=== PATIENT | female | born 1990 | race Two or more races ===

== ENCOUNTER 2016-06-30 06:43 | Emergency (ER) | payer SELFPAY ==
--- NOTE | 2016-06-30 10:46 | ER Document Report ---
HPI - HPI Patient complains to provider of: leg swelling Onset: Other - 10 years for the right, 1 week for the left Quality of pain: Throbbing Pain Level: 5 Context: 26 yo female with new swelling to left lower leg and calf pain for 1 week. Hx. chronic swelling to tirht lower leg for 10 years. No dx of what causes the swelling. Works on feet. No chest pain or SOB. No OC's. Associated Symptoms: None Exacerbated by: Standing Relieved by: Denies Similar symptoms previously: Yes Recently seen / treated by doctor: No - ROS ROS below otherwise negative: Yes Systems Reviewed and Negative: Yes All other systems reviewed and negative - REPRODUCTIVE LMP: 06/12/16 Reproductive: DENIES: : - DERM Skin Color: Normal, [place] Past Medical History - General Information source: Patient - Social History Smoking Status: Never Smoker Chew tobacco use (# tins/day): No Frequency of alcohol use: None Drug Abuse: None Lives with: Spouse/Significant other Family History: CAD - father Pulmonary Medical History: Reports: Hx Asthma Renal/ Medical History: Denies: Hx Peritoneal Dialysis Psychiatric Medical History: Reports: Hx Attention Deficit Hyperactivity Disorder, Hx Depression Past Surgical History: Reports: Hx Oral Surgery - Gum surgery - Immunizations Immunizations up to date: Yes Hx Diphtheria, Pertussis, Tetanus Vaccination: Yes Vertical Provider Document - CONSTITUTIONAL Agree With Documented VS: Yes Exam Limitations: No Limitations General Appearance: No Apparent Distress - INFECTION CONTROL TRAVEL OUTSIDE OF THE [place] IN LAST 30 DAYS: No - HEENT HEENT: Normal ENT Exam - NECK Neck: Supple - RESPIRATORY Respiratory: Breath Sounds Normal, No Respiratory Distress O2 Sat by Pulse Oximetry: 100 - CARDIOVASCULAR Cardiovascular: Regular Rate, Regular Rhythm - GI/ABDOMEN Gastrointestinal: Abdomen Soft, Abdomen Non-Tender, No Organomegaly - MUSCULOSKELETAL/EXTREMETIES Musculoskeletal/Extremeties: MAEW, FROM, Tender - minimal posterior left calf. More pitting edema right foot, pretial than the left. - NEURO Level of Consciousness: Awake, Alert Motor/Sensory: No Motor Deficit, No Sensory Deficit - DERM Integumentary: Warm, Dry, No Rash Course - Re-evaluation Re-evalutation: 06/30/16 11:54 Dr. Jovanny Leon called in for the venous Doppler ultrasounds are negative - Vital Signs Vital signs: Temp Pulse Resp BP Pulse Ox 97.7 F 81 16 140/92 H 100 06/30/16 06:53 06/30/16 06:53 06/30/16 06:53 06/30/16 06:59 06/30/16 06:53 - Laboratory Result Diagrams: 06/30/16 11:56 06/30/16 11:56 Discharge - Discharge Clinical Impression: elevated blood pressure reading, chronic peripheral edema Condition: Good Disposition: HOME, SELF-CARE Instructions: Edema, Peripheral ([facility]), Family Physicians / Practices Additional Instructions: elwevate legs above your heart see family practice doctor for further evaluation and lood pressure recheck wear knee socks compression type Forms: Return to Work
[2016-06-30 10:50] LABS: APPEARANCE,URINE CLOUDY; BILIRUBIN,URINE NEGATIVE (NEGATIVE); GLUCOSE, URINE NEGATIVE (NEGATIVE); KETONES,URINE NEGATIVE (NEGATIVE); LEUKOCYTE ESTERASE,URINE MODERATE (NEGATIVE); NITRITE,URINE NEGATIVE (NEGATIVE); PROTEIN,URINE NEGATIVE (NEGATIVE); UROBILINOGEN,URINE NEGATIVE mg/dL (<2.0)
[2016-06-30 12:26] LABS: ABSOLUTE EOSINOPHILS # (AUTO) 0.3 10^3/uL (0.0-0.6); ABSOLUTE LYMPHOCYTES (AUTO) 1.7 10^3/uL (0.5-4.7); ABSOLUTE MONOCYTES (AUTO) 0.5 10^3/uL (0.1-1.4); ABSOLUTE NEUT (AUTO) 2.8 10^3/uL (1.7-8.2); BASOPHILS % (AUTO) 0.6 % (0-2); EOSINOPHILS % (AUTO) 5.2 % (0-6); HEMATOCRIT 40.1 % (36.0-47.0); HGB HCT DIFFERENCE -1.1; LYMPHOCYTES % (AUTO) 31.6 % (13-45); MEAN CORPUSCULAR HEMOGLOBIN 29.3 pg (27.0-33.4); MEAN CORPUSCULAR HGB CONC 32.5 g/dL (32.0-36.0); MEAN CORPUSCULAR VOLUME 90 fl (80-97); MONOCYTES % (AUTO) 9.2 % (3-13); RED BLOOD COUNT 4.44 10^6/uL (3.72-5.28); RED CELL DISTRIBUTION WIDTH 14.6 % (11.5-14.0); SEGMENTED NEUTROPHILS % (AUTO) 53.4 % (42-78); WHITE BLOOD COUNT 5.2 10^3/uL (4.0-10.5)
[2016-06-30 12:45] LABS: ALANINE AMINOTRANSFERASE 12 U/L (9-52); ALKALINE PHOSPHATASE 72 U/L (38-126); ANION GAP 7 (5-19); ASPARTATE AMINO TRANSFERASE 18 U/L (14-36); BILIRUBIN,TOTAL 0.4 mg/dL (0.2-1.3); BLOOD UREA NITROGEN 9 mg/dL (7-20); CALCIUM 8.8 mg/dL (8.4-10.2); CARBON DIOXIDE 23 mmol/L (22-30); CHLORIDE 107 mmol/L (98-107); GLUCOSE 86 mg/dL (75-110); POTASSIUM 4.4 mmol/L (3.6-5.0); SODIUM 137.1 mmol/L (137-145); TOTAL PROTEIN 6.2 g/dL (6.3-8.2)
[2016-06-30 13:31] VITALS: BP 149/79
--- NOTE | 2016-07-01 13:55 | XCELERA REPORT ---
[address] [address] Lower Extremity Venous Evaluation Name: STALIN HERNÁNDEZ Age: 26 yrs Gender: Female : 1990 Patient Status: Emergency Patient Location: ER Study Date: 06/30/2016 11:16 AM Procedure: Color flow and duplex imaging bilaterally of the veins of the lower extremities as well as the Common Femoral veins. Reason For Study: bila edema, new to left with calf pain Ordering Physician: PEDRO RIOS Performed By: Paul Boothe Right Sided Venous Evaluation Normal vessel filling wall to wall, compression and augmentation as well as Colour flow down to the infrageniculate veins. Left Sided Venous Evaluation Normal vessel filling wall to wall, compression and augmentation as well as Colour flow down to the infrageniculate veins. Critical Findings Per preliminary report. Interpretation Summary No duplex evidence of DVT or obstruction in the bilateral lower extremities. : PEDRO RIOS > Jovanny Leon
== END 2016-06-30 13:31 | disposition home or self-care (01) ==
LOC: ER 06:43
DX: R03.0 Elevated blood-pressure reading, without diagnosis of hypertension (principal); R60.9 Edema, unspecified; M79.89 Other specified soft tissue disorders; M79.662 Pain in left lower leg
CPT/HCPCS: 36415; 80053; 81001; 85025; 93970; 99284

== ENCOUNTER → 2016-07-10 | Outpatient (CLI) | payer OTHER ==
[2016-07-10 10:30] LABS: CHOLESTEROL 189.83 mg/dL (0-200); Direct HDL 53 mg/dL (>40); TRIGLYCERIDES 87 mg/dL (<150)
[2016-07-10 10:41] LABS: DIRECT LDL 107 mg/dL (<100)
== END ==
LOC: CCC 08:53
DX: E66.9 Obesity, unspecified (principal); R73.9 Hyperglycemia, unspecified
CPT/HCPCS: 36415; 80061; 83036; 84443

== ENCOUNTER 2016-07-13 14:27 | Emergency (ER) | payer OTHER ==
--- NOTE | 2016-07-13 14:41 | ER Document Report ---
ED Medical Screen (RME) - General Stated Complaint: BODY PAIN Time seen by provider: 14:39 Notes: Patient complains of "inside" body pain for the last 2 weeks. Denies fever, no nausea, no vomiting, no diarrhea. Patient states she has been tested for diabetes, but has not received the results yet. Blood work was drawn and also diagnostics. Patient has history of hypertension. In checking [employer], no labs noted to be done yesterday from also diagnostics. I have greeted and performed a rapid initial assessment of this patient. A comprehensive ED assessment and evaluation of the patient, analysis of test results and completion of the medical decision making process will be conducted by additional ED providers. TRAVEL OUTSIDE OF THE [place] IN LAST 30 DAYS: No - Related Data Allergies/Adverse Reactions: No Known Allergies Allergy (Verified 07/13/16 14:38) Past Medical History Pulmonary Medical History: Reports: Hx Asthma Renal/ Medical History: Denies: Hx Peritoneal Dialysis Psychiatric Medical History: Reports: Hx Attention Deficit Hyperactivity Disorder, Hx Depression Past Surgical History: Reports: Hx Oral Surgery - Gum surgery - Immunizations Immunizations up to date: Yes Hx Diphtheria, Pertussis, Tetanus Vaccination: Yes Physical Exam - General General appearance: Appears well, Alert In distress: None
[2016-07-13 16:28] LABS: ABSOLUTE EOSINOPHILS # (AUTO) 0.3 10^3/uL (0.0-0.6); ABSOLUTE LYMPHOCYTES (AUTO) 1.8 10^3/uL (0.5-4.7); ABSOLUTE MONOCYTES (AUTO) 0.8 10^3/uL (0.1-1.4); ABSOLUTE NEUT (AUTO) 3.6 10^3/uL (1.7-8.2); BASOPHILS % (AUTO) 0.6 % (0-2); HEMOGLOBIN 13.2 g/dL (12.0-15.5); HGB HCT DIFFERENCE -1.4; LYMPHOCYTES % (AUTO) 27.6 % (13-45); MEAN CORPUSCULAR HEMOGLOBIN 29.2 pg (27.0-33.4); MEAN CORPUSCULAR HGB CONC 32.2 g/dL (32.0-36.0); MEAN CORPUSCULAR VOLUME 91 fl (80-97); MONOCYTES % (AUTO) 12.7 % (3-13); RED BLOOD COUNT 4.52 10^6/uL (3.72-5.28); RED CELL DISTRIBUTION WIDTH 13.9 % (11.5-14.0); SEGMENTED NEUTROPHILS % (AUTO) 54.1 % (42-78); WHITE BLOOD COUNT 6.6 10^3/uL (4.0-10.5)
[2016-07-13 16:44] LABS: APPEARANCE,URINE CLOUDY; BILIRUBIN,URINE NEGATIVE (NEGATIVE); GLUCOSE, URINE NEGATIVE (NEGATIVE); KETONES,URINE TRACE mg/dL (NEGATIVE); LEUKOCYTE ESTERASE,URINE TRACE (NEGATIVE); NITRITE,URINE NEGATIVE (NEGATIVE); PROTEIN,URINE 30 mg/dL (NEGATIVE); URINE SPECIFIC GRAVITY 1.034
[2016-07-13 16:45] LABS: ALANINE AMINOTRANSFERASE 25 U/L (9-52); ALBUMIN 4.1 g/dL (3.5-5.0); ALKALINE PHOSPHATASE 69 U/L (38-126); ANION GAP 11 (5-19); ASPARTATE AMINO TRANSFERASE 17 U/L (14-36); BILIRUBIN,TOTAL 0.3 mg/dL (0.2-1.3); BLOOD UREA NITROGEN 13 mg/dL (7-20); CALCIUM 9.4 mg/dL (8.4-10.2); CARBON DIOXIDE 25 mmol/L (22-30); CHLORIDE 104 mmol/L (98-107); CREATININE RESULT 0.68 mg/dL (0.52-1.25); GLUCOSE 97 mg/dL (75-110); POTASSIUM 4.2 mmol/L (3.6-5.0); SODIUM 140.1 mmol/L (137-145); TOTAL PROTEIN 7.2 g/dL (6.3-8.2)
--- NOTE | 2016-07-13 17:00 | ER Document Report ---
ED General - General Chief Complaint: Pain All Over Stated Complaint: BODY PAIN Information source: Patient Notes: 26-year-old female who presents today stating for the last 2 weeks she's had some "pain all over". She states it is in her anterior bilateral thighs and radiates up to her abdomen, chest, and bilateral extremities. She denies any fevers, headache, neck pain, nausea, vomiting, fevers, or dysuria. She denies any cough or diarrhea. Patient does have a primary care physician. Patient does state that when she was around 14 years old she was told that she had a "leaky heart". She states no intervention was required. TRAVEL OUTSIDE OF THE [place] IN LAST 30 DAYS: No - HPI Onset: Other - See above Onset/Duration: Gradual Quality of pain: Achy Severity: Mild Pain Level: 1 Associated symptoms: Other - See above Exacerbated by: Denies Relieved by: Denies Similar symptoms previously: No Recently seen / treated by doctor: Yes - Related Data Allergies/Adverse Reactions: No Known Allergies Allergy (Verified 07/13/16 14:38) Past Medical History - General Information source: Patient - Social History Smoking Status: Unknown if Ever Smoked Chew tobacco use (# tins/day): No Frequency of alcohol use: None Drug Abuse: None Family History: CAD - father Patient has suicidal ideation: No Patient has homicidal ideation: No Pulmonary Medical History: Reports: Hx Asthma Renal/ Medical History: Denies: Hx Peritoneal Dialysis Psychiatric Medical History: Reports: Hx Attention Deficit Hyperactivity Disorder, Hx Depression Past Surgical History: Reports: Hx Oral Surgery - Gum surgery - Immunizations Immunizations up to date: Yes Hx Diphtheria, Pertussis, Tetanus Vaccination: Yes Review of Systems - Review of Systems Constitutional: denies: Fever EENT: denies: Eye discharge, Nose congestion, Nose discharge Cardiovascular: denies: Chest pain, Palpitations Respiratory: denies: Cough, Short of breath Gastrointestinal: denies: Abdomen distended, Abdominal pain, Diarrhea, Vomiting Genitourinary: denies: Dysuria Musculoskeletal: denies: Back pain, Leg swelling Skin: Other - no hives. denies: Rash Neurological/Psychological: Other - no slurred speech -: Yes All other systems reviewed and negative Physical Exam - Vital signs Vitals: Temp Pulse Resp BP Pulse Ox 98.7 F 72 18 136/96 H 97 07/13/16 14:40 03/05/17 14:40 07/13/16 14:40 07/13/16 14:40 07/13/16 14:40 Notes: Reviewed vital signs and nursing note as charted by RN. CONSTITUTIONAL: Alert and oriented and responds appropriately to questions. Well -appearing; well-nourished HEAD: Normocephalic; atraumatic EYES: PERRL ENT: Normal nose; no rhinorrhea; moist mucous membranes; pharynx without lesions noted NECK: Supple without meningismus; non-tender; no cervical lymphadenopathy, no masses CARD: Regular rate and rhythm; no murmurs, no clicks, no rubs, no gallops; symmetric distal pulses RESP: Normal chest excursion without splinting or tachypnea; breath sounds clear and equal bilaterally; no wheezes, no rhonchi, no rales ABD/GI: Normal bowel sounds; non-distended; soft, non-tender, no rebound, no guarding; no palpable organomegaly or masses BACK: The back appears normal and is non-tender to palpation, there is no CVA tenderness EXT: Normal ROM in all joints; non-tender to palpation; no cyanosis, no effusions, no edema SKIN: Normal color for age and race; warm; dry; good turgor; capillary refill < 2 seconds; no acute lesions noted NEURO: CN II through XII are intact. Moves all extremities equally; Motor and sensory function intact PSYCH: The patient's mood and manner are appropriate. Grooming and personal hygiene are appropriate. Course - Re-evaluation Re-evalutation: 07/13/16 17:00 Given the history and physical examination I will check the patient's electrolytes including a normal creatinine level and calcium level given her constellation of symptoms. Patient has no joint swelling or erythema. She is afebrile with stable vital signs. If the initial workup is unremarkable, I will discharge the patient home with strict return precautions and follow-up with her primary care physician. 07/13/16 17:35 Labs as recorded. Normal hemoglobin. No obvious urinary tract infection. Normal glucose and chemistry. Chest x-ray shows normal heart, normal mediastinum, no fractures, normal lung lui, no pneumothorax. Patient will be discharged home with strict return precautions and follow-up with the primary care provider. - Vital Signs Vital signs: Temp Pulse Resp BP Pulse Ox 98.7 F 72 18 136/96 H 97 07/13/16 14:40 07/13/16 14:40 07/13/16 14:40 07/13/16 14:40 07/13/16 14:40 - Laboratory Result Diagrams: 07/13/16 16:18 07/13/16 16:18 Laboratory results interpreted by me: 07/13/16 16:18 Urine Protein 30 H Urine Ketones TRACE H Urine Urobilinogen 2.0 H Ur Leukocyte Esterase TRACE H Urine Ascorbic Acid 40 H Discharge - Discharge Clinical Impression: Whole body pain Condition: Good Disposition: HOME, SELF-CARE Additional Instructions: Come back immediately with any fevers, vomiting, weakness or numbness, or any other acute problems. Please make sure that you follow-up with your primary care physician as we have discussed.
[2016-07-13 17:54] VITALS: BP 142/77
== END 2016-07-13 17:52 | disposition home or self-care (01) ==
LOC: ER 14:27
DX: M79.652 Pain in left thigh (principal); M79.651 Pain in right thigh; R10.9 Unspecified abdominal pain; R07.9 Chest pain, unspecified; M79.601 Pain in right arm; M79.602 Pain in left arm; J45.909 Unspecified asthma, uncomplicated; Z86.79 Personal history of other diseases of the circulatory system; Z82.49 Family history of ischemic heart disease and other diseases of the circulatory system
CPT/HCPCS: 36415; 71020; 80053; 81001; 85025; 87086; 99283

== ENCOUNTER 2016-07-25 22:18 | Emergency (ER) | payer OTHER ==
[2016-07-25 22:57] VITALS: BP 146/89
--- NOTE | 2016-07-26 16:04 | EKG REPORT ---
SEVERITY:- NORMAL ECG - SINUS RHYTHM : Confirmed by: Martha Rodriguez MD 26-Jul-2016 16:03:07
== END 2016-07-26 01:30 | disposition left against medical advice (07) ==
LOC: ER 22:18
DX: Z53.21 Procedure and treatment not carried out due to patient leaving prior to being seen by health care provider (principal)
CPT/HCPCS: 93005; 93010

== ENCOUNTER 2016-11-13 12:46 | Emergency (ER) | payer SELFPAY ==
--- NOTE | 2016-11-13 13:37 | ER Document Report ---
ED Psych Disorder / Suicide - General Chief Complaint: Suicidal Ideation Stated Complaint: ANXIETY Time Seen by Provider: 11/13/16 13:35 Notes: Patient is here saying that she is depressed. She has been depressed for the last 3 years. She has been seen at the local [facility] and they put her on Lexapro about 2 months ago, but she does not feel it has helped and perhaps maybe even has made it worse. She is not attempted to harm herself but has had thoughts of killing herself. She lives with her parents and her father has PTSD and she has a difficult time getting along with him at times. Yesterday, was a particularly difficult day with her father. Patient has ADHD as well as depression. No other significant medical problems. TRAVEL OUTSIDE OF THE [place] IN LAST 30 DAYS: No - Related Data Allergies/Adverse Reactions: No Known Allergies Allergy (Verified 11/13/16 12:54) Past Medical History - Social History Smoking Status: Never Smoker Chew tobacco use (# tins/day): No Frequency of alcohol use: None Drug Abuse: None Family History: CAD - father Patient has suicidal ideation: Yes Pulmonary Medical History: Reports: Hx Asthma Psychiatric Medical History: Reports: Hx Attention Deficit Hyperactivity Disorder, Hx Depression Past Surgical History: Reports: Hx Oral Surgery - Gum surgery - Immunizations Immunizations up to date: Yes Hx Diphtheria, Pertussis, Tetanus Vaccination: Yes Review of Systems - Review of Systems Notes: REVIEW OF SYSTEMS: CONSTITUTIONAL : Denies fever. EENT: Denies eye, ear, nose or mouth or throat pain or other symptoms. CARDIOVASCULAR: Denies chest pain. RESPIRATORY: Denies cough, chest congestion, or shortness of breath. GASTROINTESTINAL: Denies abdominal pain or nausea, vomiting, or diarrhea. GENITOURINARY: Denies difficulty or painful urinating, urinary frequency, blood in urine. MUSCULOSKELETAL: Denies back or neck pain. Denies joint pain or swelling. SKIN: Denies rash or skin lesions. NEUROLOGICAL: Denies LOC or altered mental status. Denies headache. Denies sensory loss or motor deficits. ALL OTHER SYSTEMS REVIEWED AND NEGATIVE. Physical Exam - Vital signs Vitals: Temp Pulse Resp BP Pulse Ox 98.2 F 99 20 138/94 H 96 11/13/16 12:53 11/13/16 12:53 11/13/16 12:53 11/13/16 12:53 11/13/16 12:53 Interpretation: Normal - Notes Notes: PHYSICAL EXAMINATION: GENERAL: Well-appearing, in no acute distress. HEAD: Atraumatic, normocephalic. EYES: Pupils equal round and reactive to light, extraocular movements intact. ENT: oropharynx clear without exudates. Moist mucous membranes. NECK: Normal range of motion, supple. LUNGS: Breath sounds clear and equal bilaterally. HEART: Regular rate and rhythm without murmurs. ABDOMEN: Soft, nontender. No guarding or rebound. BACK: No tenderness throughout entire back. EXTREMITIES: Normal range of motion without pain. NEUROLOGICAL: Normal speech, normal gait. Normal sensory, motor, and reflex exams. Awake, alert, and oriented x3. Cranial nerves normal. PSYCH: Normal mood, normal affect. No overt depression displayed. SKIN: Warm, dry, no rashes. Course - Re-evaluation Re-evalutation: 11/13/16 20:39 All of the patient's lab workup was normal. 11/13/16 20:39 Patient was evaluated by [facility] who felt that she could be discharged home for outpatient follow-up. - Vital Signs Vital signs: Temp Pulse Resp BP Pulse Ox 98.3 F 88 18 119/77 98 11/13/16 17:07 11/13/16 17:07 11/13/16 17:07 11/13/16 17:07 11/13/16 17:07 - Laboratory Result Diagrams: 11/13/16 14:18 11/13/16 14:18 Laboratory results interpreted by me: 11/13/16 11/13/16 11/13/16 14:18 14:18 14:18 MCHC 31.5 L RDW 15.3 H Glucose 132 H Urine Protein 30 H Urine Glucose (UA) 50 H Urine Ascorbic Acid 40 H Salicylates < 1.0 L Acetaminophen < 10 L Discharge - Discharge Clinical Impression: Depression Qualifiers: Depression Type: unspecified Qualified Code(s): F32.9 - Major depressive disorder, single episode, unspecified Condition: Stable Disposition: HOME, SELF-CARE Additional Instructions: DEPRESSION: Your evaluation reveals that you have mental depression. While symptoms may be vague, they often include disturbance of sleep, fatigue, loss of appetite , and general loss of interest in life. While depression may be a side effect of drugs, or a reaction to a major change in your life, many cases have no known cause. If depression is acute, and related to a major loss in your life, you can expect it to clear completely with time. If you have been depressed a long time , are prone to repeated bouts of depression or low mood, or have been thinking of suicide, get help. Depression can be treated with anti-depressant medication and counselling. Long-term depression will often take a few weeks to clear, even with appropriate medication. Follow-up care is important. SUICIDAL IDEATION: Suicidal ideation is a common medical term for thoughts about suicide, which may be as detailed as a formulated plan, without the suicidal act itself. Although most people who undergo suicidal ideation do not commit suicide, some go on to make suicide attempts. The range of suicidal ideation varies greatly from fleeting to detailed planning, role playing, and unsuccessful attempts. While thoughts about suicide are common, most people do not carry out serious actions to commit suicide. Based upon your evaluation and discussion with you, we do not believe you are currently at risk to act upon your thoughts of suicide. You have agreed to return to the Emergency Department, at any time , if you feel inclined to act upon your suicidal thoughts. FOLLOW-UP CARE: Please follow-up with outpatient services for mental health through [facility] tomorrow at 12pm. If you experience worsening or a significant change in your symptoms, notify the physician immediately or return to the Emergency Department at any time for re-evaluation. Referrals: [facility] [Outside] - 11/14/16 12:00 pm
--- NOTE | 2016-11-13 15:59 | ER Document Report ---
ED Psych Disorder / Suicide - General Chief Complaint: Suicidal Ideation Stated Complaint: ANXIETY Time Seen by Provider: 11/13/16 13:35 TRAVEL OUTSIDE OF THE [place] IN LAST 30 DAYS: No - HPI Normal mood: Yes Associated symptoms: Normal affect, Normal mood Notes: Patient is here saying that she is depressed. She has been depressed for the last 3 years. She has been seen at the local [facility] and they put her on Lexapro about 2 months ago, but she does not feel it has helped and perhaps maybe even has made it worse. She is not attempted to harm herself but has had thoughts of killing herself. She lives with her parents and her father has PTSD and she has a difficult time getting along with him at times. Yesterday, was a particularly difficult day with her father. Patient disclosed [facility] and was put on Lexapro 20 mg daily about 2 months ago and feels her depression has gotten worse. She states that in the past she has had episodes of suicidal ideation however this is different. She states that she is now having dreams of committing suicide. She states that last night she had one and "I was scary." She continued to state that her first instinct was coming to the emergency department after the dream. Patient states she does have a history of cutting; last time she cut was at 18 years of age. She continued to state that she does have a difficult time processing things because she cannot focus. Patient states she had a diagnosis of depression and ADHD. She continues states that she does live at home with her father who is diagnosed with PTSD. She states that she has a hard time sometimes communicating with him. Patient any current or past plan for suicide or harm to self Patient's friend was bedside disclosed that she will be with patient to assist continuing with outpatient services. She continues state that she is a strong support system in addition to the patient's mother if the patient wants to talk. Patient is alert and orientated to person, place, time and circumstance. Mood is euthymic with congruent affect; patient is observed laughing smiling and openly engaging with clinician. Patient endorses passive suicidal ideation no plans mean or intent. Patient denies homicidal ideation. Patient denies auditory visual hallucinations; patient is not demonstrating any behavior congruent with responding to internal stimuli. No delusions are noted. Thought processes organized and linear. Conversational speech was in rate tone and prosody. Eye contact was well-maintained. Intellectual abilities appear to be in the low average range. Attention and concentration were good. Insight , judgment, impulse control are good. 311 (F32.9) unspecified depressive disorder per history provided by patient 314.01 (F90.9) unspecified attention deficit hyperactivity disorder per history provided by patient Impression\\plan: Patient is considered psychiatrically clear for discharge. Patient does not meet IVC criteria per [place] GS 122C. Patient disclosed passive suicidal ideation that has progressively gotten worse since starting Lexapro about 2 months ago. Patient does not have established outpatient provider for mental health. Patient demonstrated good insight, judgment and impulse control on coming to the emergency department for assistance when feelings of depression intensifying. Patient is recommended for outpatient services through [facility]. Dr. Morales was consulted and the care and management of this patient; attending physician is in agreement with recommendations and disposition. - Related Data Allergies/Adverse Reactions: No Known Allergies Allergy (Verified 11/13/16 12:54) Past Medical History - Social History Smoking Status: Never Smoker Chew tobacco use (# tins/day): No Frequency of alcohol use: None Drug Abuse: None Family History: CAD - father Patient has suicidal ideation: Yes Pulmonary Medical History: Reports: Hx Asthma Renal/ Medical History: Denies: Hx Peritoneal Dialysis Psychiatric Medical History: Reports: Hx Attention Deficit Hyperactivity Disorder, Hx Depression Past Surgical History: Reports: Hx Oral Surgery - Gum surgery - Immunizations Immunizations up to date: Yes Hx Diphtheria, Pertussis, Tetanus Vaccination: Yes Physical Exam - Vital signs Vitals: Temp Pulse Resp BP Pulse Ox 98.2 F 99 20 138/94 H 96 11/13/16 12:53 11/13/16 12:53 11/13/16 12:53 11/13/16 12:53 11/13/16 12:53 Course - Vital Signs Vital signs: Temp Pulse Resp BP Pulse Ox 98.2 F 99 20 138/94 H 96 11/13/16 12:53 11/13/16 12:53 11/13/16 12:53 11/13/16 12:53 11/13/16 12:53 Discharge - Discharge Clinical Impression: Depression Qualifiers: Depression Type: unspecified Qualified Code(s): F32.9 - Major depressive disorder, single episode, unspecified Condition: Stable Disposition: HOME, SELF-CARE Additional Instructions: DEPRESSION: Your evaluation reveals that you have mental depression. While symptoms may be vague, they often include disturbance of sleep, fatigue, loss of appetite , and general loss of interest in life. While depression may be a side effect of drugs, or a reaction to a major change in your life, many cases have no known cause. If depression is acute, and related to a major loss in your life, you can expect it to clear completely with time. If you have been depressed a long time , are prone to repeated bouts of depression or low mood, or have been thinking of suicide, get help. Depression can be treated with anti-depressant medication and counselling. Long-term depression will often take a few weeks to clear, even with appropriate medication. Follow-up care is important. SUICIDAL IDEATION: Suicidal ideation is a common medical term for thoughts about suicide, which may be as detailed as a formulated plan, without the suicidal act itself. Although most people who undergo suicidal ideation do not commit suicide, some go on to make suicide attempts. The range of suicidal ideation varies greatly from fleeting to detailed planning, role playing, and unsuccessful attempts. While thoughts about suicide are common, most people do not carry out serious actions to commit suicide. Based upon your evaluation and discussion with you, we do not believe you are currently at risk to act upon your thoughts of suicide. You have agreed to return to the Emergency Department, at any time , if you feel inclined to act upon your suicidal thoughts. FOLLOW-UP CARE: Please follow-up with outpatient services for mental health through [facility] tomorrow at 12pm. If you experience worsening or a significant change in your symptoms, notify the physician immediately or return to the Emergency Department at any time for re-evaluation. Referrals: [facility] [Outside] - 11/14/16 12:00 pm
[2016-11-13 16:04] LABS: ABSOLUTE EOSINOPHILS # (AUTO) 0.3 10^3/uL (0.0-0.6); ABSOLUTE LYMPHOCYTES (AUTO) 1.7 10^3/uL (0.5-4.7); ABSOLUTE MONOCYTES (AUTO) 0.9 10^3/uL (0.1-1.4); ABSOLUTE NEUT (AUTO) 4.7 10^3/uL (1.7-8.2); BASOPHILS % (AUTO) 0.2 % (0-2); EOSINOPHILS % (AUTO) 3.3 % (0-6); HEMATOCRIT 41.2 % (36.0-47.0); HGB HCT DIFFERENCE -2.2; LYMPHOCYTES % (AUTO) 22.7 % (13-45); MEAN CORPUSCULAR HEMOGLOBIN 28.6 pg (27.0-33.4); MEAN CORPUSCULAR HGB CONC 31.5 g/dL (32.0-36.0); MEAN CORPUSCULAR VOLUME 91 fl (80-97); MONOCYTES % (AUTO) 11.4 % (3-13); RED BLOOD COUNT 4.53 10^6/uL (3.72-5.28); RED CELL DISTRIBUTION WIDTH 15.3 % (11.5-14.0); SEGMENTED NEUTROPHILS % (AUTO) 62.4 % (42-78); WHITE BLOOD COUNT 7.6 10^3/uL (4.0-10.5)
[2016-11-13 16:18] LABS: ALANINE AMINOTRANSFERASE 22 U/L (9-52); ALBUMIN 4.2 g/dL (3.5-5.0); ALKALINE PHOSPHATASE 79 U/L (38-126); ANION GAP 13 (5-19); ASPARTATE AMINO TRANSFERASE 17 U/L (14-36); BILIRUBIN,DIRECT 0.3 mg/dL (0.0-0.4); BILIRUBIN,TOTAL 0.4 mg/dL (0.2-1.3); BLOOD UREA NITROGEN 12 mg/dL (7-20); CALCIUM 9.4 mg/dL (8.4-10.2); CARBON DIOXIDE 23 mmol/L (22-30); CHLORIDE 105 mmol/L (98-107); CREATININE RESULT 0.68 mg/dL (0.52-1.25); GLUCOSE 132 mg/dL (75-110); POTASSIUM 4.3 mmol/L (3.6-5.0); SODIUM 141.3 mmol/L (137-145); TOTAL PROTEIN 7.9 g/dL (6.3-8.2)
[2016-11-13 16:20] LABS: ALCOHOL < 10 mg/dL (NONE DETECTED)
[2016-11-13 16:28] LABS: APPEARANCE,URINE CLEAR; BILIRUBIN,URINE NEGATIVE (NEGATIVE); GLUCOSE, URINE 50 mg/dL (NEGATIVE); KETONES,URINE NEGATIVE (NEGATIVE)
[2016-11-13 16:29] LABS: LEUKOCYTE ESTERASE,URINE NEGATIVE (NEGATIVE); NITRITE,URINE NEGATIVE (NEGATIVE); PROTEIN,URINE 30 mg/dL (NEGATIVE); URINE SPECIFIC GRAVITY 1.026; UROBILINOGEN,URINE NEGATIVE mg/dL (<2.0)
[2016-11-13 16:37] LABS: URINE BARBITURATES SCREEN NEGATIVE; URINE METHADONE SCREEN NEGATIVE; URINE OPIATES LOW NEGATIVE; URINE PHENCYCLIDINE SCREEN NEGATIVE
[2016-11-13 17:08] VITALS: BP 119/77
--- NOTE | 2016-11-13 18:02 | EKG REPORT ---
SEVERITY:- BORDERLINE ECG - SINUS RHYTHM NONSPECIFIC ST-T CHANGES- INFERIOR LEADS : Confirmed by: Richmond Grove MD 13-Nov-2016 18:02:39
== END 2016-11-13 17:24 | disposition home or self-care (01) ==
LOC: ER 12:46
DX: F32.9 Major depressive disorder, single episode, unspecified (principal); F41.9 Anxiety disorder, unspecified; Z79.899 Other long term (current) drug therapy
CPT/HCPCS: 36415; 80053; 80307; 81001; 85025; 93005; 93010; 99285

== ENCOUNTER 2016-12-17 08:22 | Emergency (ER) | payer SELFPAY ==
[2016-12-17 08:32] VITALS: BP 133/80
--- NOTE | 2016-12-17 08:59 | ER Document Report ---
ED General - General Mode of Arrival: Ambulatory Information source: Patient TRAVEL OUTSIDE OF THE [place] IN LAST 30 DAYS: No - HPI Associated symptoms: Other - see above - General Chief Complaint: Numbness Stated Complaint: NUMBNESS/TINGLING IN LIMBS Time Seen by Provider: 12/17/16 08:44 Notes: Patient is a 26 year old female who presents to the ED with complaints of bilateral hand tingling and numbness with onset Thursday (12/15/16). Patient states she draws frequently and she also works on a [employer] and when doing so she has shooting pain in her 3,4 and 5th digits. Patient states the sensation and pain is sometimes worse at night and is worse in her right hand (patient is right handed). Patient also adds that she has swelling in her bilateral feet since the age of 14. Patient states she also has some bruising on the top of her feet. Patient states to the swelling tends to be worse after eating and states she tends to eat a high salt diet. Patient has been worked up for this swelling before and was told it was non pitting. Patient denies any constipation. Patient does not currently have a PCP. (TAWANDA HOLLOWAY) - Related Data Allergies/Adverse Reactions: No Known Allergies Allergy (Verified 12/17/16 08:33) Past Medical History - General Information source: Patient - Social History Smoking Status: Never Smoker Cigarette use (# per day): No Chew tobacco use (# tins/day): No Frequency of alcohol use: None Drug Abuse: None Family History: CAD - father Patient has suicidal ideation: No Patient has homicidal ideation: No Pulmonary Medical History: Reports: Hx Asthma Renal/ Medical History: Denies: Hx Peritoneal Dialysis Psychiatric Medical History: Reports: Hx Attention Deficit Hyperactivity Disorder, Hx Depression Past Surgical History: Reports: Hx Oral Surgery - Gum surgery - Immunizations Immunizations up to date: Yes Hx Diphtheria, Pertussis, Tetanus Vaccination: Yes Review of Systems - Review of Systems Constitutional: No symptoms reported EENT: No symptoms reported Cardiovascular: No symptoms reported Respiratory: No symptoms reported Gastrointestinal: See HPI. denies: Constipation Genitourinary: No symptoms reported Female Genitourinary: No symptoms reported Musculoskeletal: See HPI, Other - swelling to bilateral feet Skin: No symptoms reported Hematologic/Lymphatic: No symptoms reported Neurological/Psychological: See HPI, Numbness, Tingling Physical Exam - Vital signs Vitals: Temp Pulse Resp BP Pulse Ox 97.7 F 98 16 133/80 H 98 12/17/16 08:28 12/17/16 08:28 12/17/16 08:12/17/16 08:12/17/16 08:28 - Notes Notes: GENERAL: Alert, interacts well. No acute distress. HEAD: Normocephalic, atraumatic. EYES: Pupils equal, round, and reactive to light. Extraocular movements intact. ENT: Oral mucosa moist, tongue midline. NECK: Full range of motion. Supple. Trachea midline. LUNGS: No respiratory distress. EXTREMITIES: Moves all 4 extremities spontaneously. Radial and dorsalis pedis pulses 2/4 bilaterally. No cyanosis. Positive Tinels test bilaterally. Positive Phalen testing bilaterally. No hypothenar eminence wasting. Pain is reproducible when arms are outstretched above head. Full ROM of bilateral wrists. Non pitting edema bilateral feet with mild erythema mostly over pressure points where shoes rub. All pulses and sensation intact. Full ROM of lower extremities. NEUROLOGICAL: Alert and oriented x3. Normal speech. PSYCH: Normal affect, normal mood. SKIN: Warm, dry, normal turgor. No rashes or lesions noted (TAWANDA HOLLOWAY) Course - Re-evaluation Re-evalutation: 12/17/16 09:16 Wrist symptoms consistent with carpal tunnel syndrome, patient has risk factors including repetitive motions during work. Patient will be placed in cockup splints, taught stretching techniques and advised to use NSAIDs. Discharged home. For the intermittent swelling in her bilateral feet that has been going on since she was 14 years old and happens whenever she eats particularly if she eats a high salt diet patient is advised to go on a low-sodium diet for the next 2 weeks and see if this helps. It is nonpitting, there is no chest pain or shortness of breath, there is no abdominal pain patient is very low risk for DVT particularly as this is been going on for 12 years as well as low risk for heart failure as it is nonpitting and she has no chest pain or shortness of breath. Discharged home. (SHONDA HAINES) - Vital Signs Vital signs: Temp Pulse Resp BP Pulse Ox 97.7 F 98 16 133/80 H 98 12/17/16 08:28 12/17/16 08:28 12/17/16 08:28 12/17/16 08:28 12/17/16 08:28 Discharge - Discharge Clinical Impression: Peripheral edema, Bilateral carpal tunnel syndrome, Pre-hypertension Condition: Stable Disposition: HOME, SELF-CARE Additional Instructions: Carpal Tunnel Syndrome Your examination suggests carpal tunnel syndrome. This syndrome is due to pressure on a nerve in the wrist. The pressure may be caused by an old injury, hard work using the wrist, work involving repeated motions of the hand, wrist positions that keep pressure on the joint, or arthritis in the wrist. Typical symptoms are tingling, numbness, and pain in the palm, thumb, index and middle fingers, and one side of the ring finger. Often a splint, ice packs, and antiinflammatory medication make the symptoms go away. If the physician feels that your problem is chronic, you will be referred to a specialist for further care. If symptoms do not go away, carpal tunnel syndrome may require surgery. You should call the doctor if pain increases, if you develop difficulty using the thumb or fingers, or if major swelling occurs. For the swelling in your legs please consider going on a low-sodium diet for the next 2 weeks. Please keep in mind that sodium can be hidden in processed foods and in soda. Your goal is to have less than 1500 mg of sodium a day. Forms: Return to Work Referrals: JACOB MORRIS MD [ACTIVE STAFF] - Follow up as needed Scribe Attestation: 12/17/16 17:15 I personally performed the services described in the documentation, reviewed and edited the documentation which was dictated to the scribe in my presence, and it accurately records my words and actions. (SHONDA HAINES) Scribe Documentation - Scribe Written by Vandana:: vandana Forrest, 12/17/2016, 0900 acting as scribe for :: Nicole
== END 2016-12-17 09:33 | disposition home or self-care (01) ==
LOC: ER 08:22
DX: G56.03 Carpal tunnel syndrome, bilateral upper limbs (principal); R03.0 Elevated blood-pressure reading, without diagnosis of hypertension; R60.0 Localized edema; L53.9 Erythematous condition, unspecified; J45.909 Unspecified asthma, uncomplicated
CPT/HCPCS: 99283; L3908 ×2

== ENCOUNTER 2017-01-08 15:40 | Emergency (ER) | payer SELFPAY ==
--- NOTE | 2017-01-08 17:12 | ER Document Report ---
ED Medical Screen (RME) - General Chief Complaint: Rectal Pain Stated Complaint: RECTAL BLEEDING Time Seen by Provider: 01/08/17 16:34 Mode of Arrival: Ambulatory Information source: Patient Notes: Patient presents with a two-week history of lower abdominal pain, pain with bowel movements, lower sacral pain, and occasional blood with bowel movements. Patient denies any fever, nausea or vomiting. Patient reports some vaginal discharge but denies any vaginal bleeding. Patient denies any history of inflammatory bowel disease. TRAVEL OUTSIDE OF THE [place] IN LAST 30 DAYS: No - Related Data Allergies/Adverse Reactions: No Known Allergies Allergy (Verified 01/08/17 15:44) Past Medical History - Social History Chew tobacco use (# tins/day): No Frequency of alcohol use: None Drug Abuse: None Pulmonary Medical History: Reports: Hx Asthma Renal/ Medical History: Denies: Hx Peritoneal Dialysis Psychiatric Medical History: Reports: Hx Attention Deficit Hyperactivity Disorder, Hx Depression Past Surgical History: Reports: Hx Oral Surgery - Gum surgery - Immunizations Immunizations up to date: Yes Hx Diphtheria, Pertussis, Tetanus Vaccination: Yes Physical Exam - Vital signs Vitals: Temp Pulse Resp BP Pulse Ox 98.0 F 94 20 146/88 H 99 01/08/17 15:44 01/08/17 15:44 01/08/17 15:44 01/08/17 15:44 01/08/17 15:44 - Abdominal Inspection: Obese Tenderness: Tender - Lower pelvic tenderness Course - Vital Signs Vital signs: Temp Pulse Resp BP Pulse Ox 98.0 F 94 20 146/88 H 99 01/08/17 15:44 01/08/17 15:44 01/08/17 15:44 01/08/17 15:44 01/08/17 15:44
--- NOTE | 2017-01-08 18:48 | ER Document Report ---
ED GI Bleed / Rectal Pain - General Mode of Arrival: Ambulatory Information source: Patient TRAVEL OUTSIDE OF THE [place] IN LAST 30 DAYS: No - HPI Patient complains to provider of: Bright red bld from rect. Onset: Just prior to arrival Timing/Duration: Persistent Severity of symptoms: None - General Chief Complaint: Rectal Pain Stated Complaint: RECTAL BLEEDING Time Seen by Provider: 01/08/17 16:34 Notes: Patient is a 26-year-old female that presents to the emergency department today with complaints of constipation and rectal bleeding. Patient states that she has been constipated for two weeks and noticed blood on the toilet paper with a recent bowel movement. (LUCILLE JENKINS) - Related Data Allergies/Adverse Reactions: No Known Allergies Allergy (Verified 01/08/17 15:44) Past Medical History - General Information source: Patient - Social History Smoking Status: Never Smoker Cigarette use (# per day): No Chew tobacco use (# tins/day): No Frequency of alcohol use: None Drug Abuse: None Lives with: Family Family History: Reviewed & Not Pertinent, CAD - father Pulmonary Medical History: Reports: Hx Asthma Psychiatric Medical History: Reports: Hx Attention Deficit Hyperactivity Disorder, Hx Depression Past Surgical History: Reports: Hx Oral Surgery - Gum surgery - Immunizations Immunizations up to date: Yes Hx Diphtheria, Pertussis, Tetanus Vaccination: Yes Review of Systems - Review of Systems Constitutional: No symptoms reported EENT: No symptoms reported Cardiovascular: No symptoms reported Respiratory: No symptoms reported Gastrointestinal: See HPI, Constipation, Rectal bleeding Genitourinary: No symptoms reported Female Genitourinary: No symptoms reported Musculoskeletal: No symptoms reported Skin: No symptoms reported Hematologic/Lymphatic: No symptoms reported Neurological/Psychological: No symptoms reported -: Yes All other systems reviewed and negative Physical Exam - Vital signs Vitals: Temp Pulse Resp BP Pulse Ox 98.0 F 94 20 146/88 H 99 01/08/17 15:44 01/08/17 15:44 01/08/17 15:44 01/08/17 15:44 01/08/17 15:44 - Notes Notes: Physical Exam: General: Alert, appears well. HEENT: Normocephalic. Atraumatic. PERRL. Extraocular movements intact. Oropharynx clear. Neck: Supple. Non-tender. Respiratory: No respiratory distress. Clear and equal breath sounds bilaterally. Cardiovascular: Regular rate and rhythm. Abdominal: Normal Inspection. Non-tender. No distension. Normal Bowel Sounds. Rectal: Tenderness inside rectum consistent with anal fissure. Back: Non-tender. No deformity or step off. Extremities: Moves all four extremities. Upper extremities: Normal inspection. Normal ROM. Lower extremities: Normal inspection. No edema. Normal ROM. Neurological: Normal cognition. AAOx4. Normal speech. Psychological: Normal affect. Normal Mood. Skin: Warm. Dry. Normal color. (LUCILLE JENKINS) Course - Re-evaluation Re-evalutation: 01/09/17 03:19 Patient presents to the emergency department with chief complaint of some bright red blood on the tissue. Patient states that she has not been drinking any water and that her stool has been sharp and cutting her and she has been having a bowel movement. She noticed some bright red blood and says it hurts at her anus. She denies any history of Crohn's disease or ulcerative colitis she has never had colonic surgery. She denies any abdominal pain vomiting diarrhea or urinary complaints. On examination is well-appearing nontoxic hemodynamically stable on rectal examination she has tenderness right at the anal opening just inside consistent with a fissure no active bleeding hemorrhoid. Patient is discharged given rectal suppositories recommend increase fiber plenty of fluids follow-up primary care physician and discussed reasons for ED return sooner (ELIZABETH HALEY) - Vital Signs Vital signs: Temp Pulse Resp BP Pulse Ox 98.5 F 76 16 133/86 H 100 01/08/17 19:10 01/08/17 19:10 01/08/17 19:10 01/08/17 19:10 01/08/17 19:10 Discharge - Discharge Clinical Impression: Anal fissure Condition: Stable Disposition: HOME, SELF-CARE Additional Instructions: Anal Fissure You have a split in the tissues of the anus, called an anal fissure. This may be due to constipation, or chronic anal irritation. The fissure causes pain during bowel movements. It may bleed when you pass stool. Treat the fissure with warm sitz baths three or four times a day. Clean the anal area carefully -- special cleansing pads (Tucks) may be helpful. Sometimes prescription suppositories are helpful in reducing pain and inflammation. A stool softener (such as Metamucil) will make bowel movements less traumatic. Eat a diet high in fiber (fruits, whole grains), and drink plenty of water. See your doctor if there is profuse bleeding, increasing pain, an enlarging mass, or fever -- or if the symptoms do not resolve after treatment. Prescriptions: Hydrocortisone Acetate [Anusol Hc 25 mg Supp.rect] 1 supp.rect MO BID #14 supp.rect Polyethylene Glycol 3350 [Miralax] 1 cap PO DAILY #527 powder Referrals: [facility] [Provider Group] - Follow up in 3-5 days (Return to the emergency permit sooner for increasing worsening or new symptoms) Scribe Attestation: 01/08/17 19:00 I personally performed the services described in the documentation reviewed the documentation recorded by my scribe in my presence and it accurately and completely records my words and actions (ELIZABETH HALEY) Scribe Documentation - Scribe Written by Shana:: Shana Campo, 01/08/2017 [id number] acting as scribe for :: Prince
[2017-01-08 19:14] VITALS: BP 133/86
== END 2017-01-08 19:10 | disposition home or self-care (01) ==
LOC: ER 15:40
DX: K60.2 Anal fissure, unspecified (principal); K62.5 Hemorrhage of anus and rectum; K59.00 Constipation, unspecified
CPT/HCPCS: 99283

== ENCOUNTER 2017-04-16 19:28 | Emergency (ER) | payer SELFPAY ==
[2017-04-16 19:37] VITALS: BP 132/79
--- NOTE | 2017-04-16 19:55 | ER Document Report ---
ED Medical Screen (RME) - General Chief Complaint: Rectal Bleeding Stated Complaint: RECTUM BLEEDING Time Seen by Provider: 04/16/17 19:50 Notes: 26-year-old female with history of anal fissure, presents with worsening rectal pain and small amount of blood on the toilet paper after she wiped. She tried using rectal suppositories and eating a high-fiber diet without much relief of her symptoms. Patient also having right hip pain and thinks she may have strained it. PE: Tenderness over right lateral hip. Steady gait. Rectal exam deferred in PIT. I have greeted and performed a rapid initial assessment of this patient. A comprehensive ED assessment and evaluation of the patient, analysis of test results and completion of the medical decision making process will be conducted by additional ED providers. TRAVEL OUTSIDE OF THE [place] IN LAST 30 DAYS: No - Related Data Allergies/Adverse Reactions: No Known Allergies Allergy (Verified 04/16/17 19:32) Home Medications: Current Home Medications No Home Medications 04/16/17 [History] Past Medical History Pulmonary Medical History: Reports: Hx Asthma Renal/ Medical History: Denies: Hx Peritoneal Dialysis Psychiatric Medical History: Reports: Hx Attention Deficit Hyperactivity Disorder, Hx Depression Past Surgical History: Reports: Hx Oral Surgery - Gum surgery - Immunizations Immunizations up to date: Yes Hx Diphtheria, Pertussis, Tetanus Vaccination: Yes Physical Exam - Vital signs Vitals: Temp Pulse Resp BP Pulse Ox 98.5 F 77 18 132/79 H 97 04/16/17 19:34 04/16/17 19:34 04/16/17 19:34 04/16/17 19:34 04/16/17 19:34 Course - Vital Signs Vital signs: Temp Pulse Resp BP Pulse Ox 98.5 F 77 18 132/79 H 97 04/16/17 19:34 04/16/17 19:34 04/16/17 19:34 04/16/17 19:34 04/16/17 19:34
[2017-04-16] MEDS ORDERED: LIDOCAINE 2% JELLY 5 ML TUBE TOP ONE (20:04)
--- NOTE | 2017-04-16 20:41 | ER Document Report ---
ED General - General Chief Complaint: Rectal Bleeding Stated Complaint: RECTUM BLEEDING Time Seen by Provider: 04/16/17 19:50 Notes: Patient is a 26-year-old female with a past medical history of recurrent anal fissures who presents with concerns of the same. Patient reports for the past 4 weeks she has had a small amount of blood each time she wipes after having a bowel movement. She also notes a moderate, burning, stinging pain to her rectum at all times. Having a bowel movement worsens the pain. Nothing improves the pain. She has not seen her primary doctor regarding this concern. She states this feels similar although not as severe as it was when she has had anal fissures in the past. She also notes that she has had right hip pain since waking up this morning. She states it feels like she pulled a muscle in the right hip. Pain is a mild, constant, irritating pain. Worsened by movement of the hip. She has not tried any to improve the pain. TRAVEL OUTSIDE OF THE [place] IN LAST 30 DAYS: No - Related Data Allergies/Adverse Reactions: No Known Allergies Allergy (Verified 04/16/17 19:32) Home Medications: Current Home Medications No Home Medications 04/16/17 [History] Past Medical History - General Information source: Patient - Social History Smoking Status: Never Smoker Frequency of alcohol use: None Drug Abuse: None Family History: Reviewed & Not Pertinent, CAD - father Patient has suicidal ideation: No Patient has homicidal ideation: No Pulmonary Medical History: Reports: Hx Asthma Renal/ Medical History: Denies: Hx Peritoneal Dialysis Psychiatric Medical History: Reports: Hx Attention Deficit Hyperactivity Disorder, Hx Depression Past Surgical History: Reports: Hx Oral Surgery - Gum surgery - Immunizations Immunizations up to date: Yes Hx Diphtheria, Pertussis, Tetanus Vaccination: Yes Review of Systems - Review of Systems Notes: Constitutional: Negative for fever. HENT: Negative for sore throat. Eyes: Negative for visual changes. Cardiovascular: Negative for chest pain. Respiratory: Negative for shortness of breath. Gastrointestinal: Positive for rectal pain Genitourinary: Negative for dysuria. Musculoskeletal: Positive for right hip pain Skin: Negative for rash. Neurological: Negative for headaches, weakness or numbness. 10 point ROS negative except as marked above and in HPI. Physical Exam - Vital signs Vitals: Temp Pulse Resp BP Pulse Ox 98.5 F 77 18 132/79 H 97 04/16/17 19:34 04/16/17 19:34 04/16/17 19:34 04/16/17 19:34 04/16/17 19:34 Interpretation: Normal Notes: PHYSICAL EXAMINATION: GENERAL: Well-appearing, well-nourished and in no acute distress. HEAD: Atraumatic, normocephalic. EYES: Pupils equal round and reactive to light, extraocular movements intact, sclera anicteric, conjunctiva are normal. ENT: nares patent, oropharynx clear without exudates. Moist mucous membranes. NECK: Normal range of motion, supple without lymphadenopathy LUNGS: Breath sounds clear to auscultation bilaterally and equal. No wheezes rales or rhonchi. HEART: Regular rate and rhythm without murmurs ABDOMEN: Soft, nontender, normoactive bowel sounds. No guarding, no rebound. No masses appreciated. Rectal: Small anal fissure at the noon position. No hemorrhoids. No active bleeding EXTREMITIES: Normal range of motion, no pitting or edema. No cyanosis. Mild pain on palpation of the right anterior lateral thigh NEUROLOGICAL: No focal neurological deficits. Moves all extremities spontaneously and on command. PSYCH: Normal mood, normal affect. SKIN: Warm, Dry, normal turgor, no rashes or lesions noted. Course - Re-evaluation Re-evalutation: 04/16/17 20:38 Patient presents with a small anal fissure at the noon position of the anus without any active bleeding. No symptoms to suggest clinically significant anemia to warrant a CBC check. Will start patient on topical lidocaine and stool softeners. She also complains of right hip pain and symptoms are most consistent with a likely musculoskeletal strain. X-rays do not demonstrate any evidence of an acute fracture and I do not clinically suspect an acute septic joint or more serious alternative pathology. X-rays do show possible bilateral femoral acetabular impingement the patient has no symptoms on the left. I have informed her of these findings and provided her a copy of her x-ray report that she can follow-up with should her symptoms persist. At this time will discharge with return precautions and follow-up recommendations. Verbal discharge instructions given a the bedside and opportunity for questions given. Medication warnings reviewed. Patient is in agreement with this plan and has verbalized understanding of return precautions and the need for primary care follow-up in the next 24-72 hours. - Vital Signs Vital signs: Temp Pulse Resp BP Pulse Ox 98.5 F 77 18 132/79 H 97 04/16/17 19:34 04/16/17 19:34 04/16/17 19:34 04/16/17 19:34 04/16/17 19:34 - Diagnostic Test Radiology reviewed: Image reviewed, Reports reviewed Radiology results interpreted by me: 04/16/17 21:33 Right hip x-ray: No acute fracture or dislocation Discharge - Discharge Clinical Impression: Anal fissure, Right hip pain Condition: Good Disposition: HOME, SELF-CARE Additional Instructions: Your x-ray does not show any acute fracture today. You likely have a ligamentous strain. You should continue to take anti-inflammatories such as ibuprofen 600 mg every 6 hours. Continue to apply ice to the area is much your able. Please follow-up with your primary care physician if you do not have improving your symptoms in the next 1-2 weeks. Please return immediately if you develop weakness, numbness, spreading redness from the area, or any other symptoms that are concerning to you. You were seen today for an anal fissure. You need to make sure that your stools are soft and should start taking Docusate 200mg in the morning and at night until your stools are very soft and you can have a bowel movement without any straining. You can also soak in warm water, apply the topical that can be purchased at the store, and take tylenol or ibuprofen per box instructions as needed for pain. Please follow-up with your primary doctor. Return if you begin to have persistent bleeding, worsening pain, abdominal pain, fever >101, or any other symptoms that are concerning to you.
--- NOTE | 2017-04-16 21:09 | RADIOLOGY REPORT (SQ) ---
EXAM DESCRIPTION: HIP RIGHT AP/LATERAL COMPLETED DATE/TIME: 04/16/2017 9:00 pm REASON FOR STUDY: right hip pain COMPARISON: None. NUMBER OF VIEWS: Two views. TECHNIQUE: AP pelvis and additional frog-leg view of the right hip. LIMITATIONS: None. FINDINGS: MINERALIZATION: Normal. RIGHT HIP: No fracture or dislocation. No worrisome bone lesions. Suspect CAM type femoroacetabular impingement. . No joint space narrowing. LEFT HIP: No fracture or dislocation. Suspect CAM type femoroacetabular impingement. . PUBIS AND ISCHIUM: No fracture. PELVIS: No fracture. SACRUM: No fracture or dislocation. No worrisome bone lesions. LOWER LUMBAR SPINE: No fracture or dislocation. No worrisome bone lesions. No significant disc disea se. SOFT TISSUES: No findings. OTHER: No other significant finding. 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 TECHNICAL DOCUMENTATION: JOB ID: [id number] [employer]- All Rights Reserved
== END 2017-04-16 21:31 | disposition home or self-care (01) ==
LOC: ER 19:28
DX: K60.2 Anal fissure, unspecified (principal); M25.551 Pain in right hip; K62.5 Hemorrhage of anus and rectum; K62.89 Other specified diseases of anus and rectum; J45.909 Unspecified asthma, uncomplicated
CPT/HCPCS: 99283

== ENCOUNTER 2017-04-28 21:20 | Emergency (ER) | payer SELFPAY ==
[2017-04-28 22:25] LABS: ABSOLUTE BASOPHILS # (AUTO) 0.1 10^3/uL (0.0-0.2); ABSOLUTE EOSINOPHILS # (AUTO) 0.1 10^3/uL (0.0-0.6); ABSOLUTE MONOCYTES (AUTO) 0.8 10^3/uL (0.1-1.4); ABSOLUTE NEUT (AUTO) 4.5 10^3/uL (1.7-8.2); BASOPHILS % (AUTO) 0.8 % (0-2); EOSINOPHILS % (AUTO) 1.4 % (0-6); HEMATOCRIT 38.3 % (36.0-47.0); HEMOGLOBIN 12.8 g/dL (12.0-15.5); HGB HCT DIFFERENCE 0.1; LYMPHOCYTES % (AUTO) 26.8 % (13-45); MEAN CORPUSCULAR HEMOGLOBIN 30.1 pg (27.0-33.4); MEAN CORPUSCULAR HGB CONC 33.4 g/dL (32.0-36.0); MEAN CORPUSCULAR VOLUME 90 fl (80-97); MONOCYTES % (AUTO) 10.5 % (3-13); RED BLOOD COUNT 4.26 10^6/uL (3.72-5.28); RED CELL DISTRIBUTION WIDTH 14.5 % (11.5-14.0); SEGMENTED NEUTROPHILS % (AUTO) 60.5 % (42-78); WHITE BLOOD COUNT 7.4 10^3/uL (4.0-10.5)
[2017-04-28 22:33] LABS: APPEARANCE,URINE SLIGHTLY-CLOUDY; BILIRUBIN,URINE NEGATIVE (NEGATIVE); GLUCOSE, URINE NEGATIVE (NEGATIVE); KETONES,URINE NEGATIVE (NEGATIVE); LEUKOCYTE ESTERASE,URINE TRACE (NEGATIVE); NITRITE,URINE NEGATIVE (NEGATIVE); PROTEIN,URINE 30 mg/dL (NEGATIVE); URINE SPECIFIC GRAVITY 1.029
[2017-04-28 22:46] LABS: ALANINE AMINOTRANSFERASE 19 U/L (9-52); ALBUMIN 4.3 g/dL (3.5-5.0); ALKALINE PHOSPHATASE 73 U/L (38-126); ANION GAP 12 (5-19); ASPARTATE AMINO TRANSFERASE 15 U/L (14-36); BILIRUBIN,DIRECT 0.2 mg/dL (0.0-0.4); BILIRUBIN,TOTAL 0.3 mg/dL (0.2-1.3); BLOOD UREA NITROGEN 15 mg/dL (7-20); CALCIUM 9.3 mg/dL (8.4-10.2); CARBON DIOXIDE 27 mmol/L (22-30); CHLORIDE 102 mmol/L (98-107); CREATININE RESULT 0.83 mg/dL (0.52-1.25); GLUCOSE 145 mg/dL (75-110); POTASSIUM 4.1 mmol/L (3.6-5.0); SODIUM 141.2 mmol/L (137-145); TOTAL PROTEIN 7.5 g/dL (6.3-8.2)
[2017-04-28 22:47] LABS: ALCOHOL < 10 mg/dL (NONE DETECTED)
[2017-04-28 22:48] LABS: URINE BARBITURATES SCREEN NEGATIVE; URINE METHADONE SCREEN NEGATIVE; URINE OPIATES LOW NEGATIVE; URINE PHENCYCLIDINE SCREEN NEGATIVE
--- NOTE | 2017-04-28 23:30 | ER Document Report ---
ED General - General Chief Complaint: Depression Stated Complaint: PSYCH EVALUATION Time Seen by Provider: 04/28/17 21:48 Notes: Patient is a 26-year-old female with a past medical history of depression and ADHD who presents with 2 years of passive suicidal ideation as well as progressively worsening depression. She reports that she came to the emergency department today because she finally became ready to receive help as she states that she can no longer continue to function in this manner. She reports multiple life stressors as worsening her symptoms including full-time work, full -time school, and conflicts with her father. She is not currently taking any medications and states she has never been trialed on antidepressants. She is to follow with a therapist but has not done so in several years. She denies any active plan or intention to complete suicide today but states that she does continue to have passive suicidal thoughts. She denies any making any attempt to harm herself today. She denies any acute medical concerns. TRAVEL OUTSIDE OF THE [place] IN LAST 30 DAYS: No - Related Data Allergies/Adverse Reactions: No Known Allergies Allergy (Verified 04/16/17 19:32) Past Medical History - General Information source: Patient - Social History Smoking Status: Never Smoker Chew tobacco use (# tins/day): No Frequency of alcohol use: None Drug Abuse: None Lives with: Family Family History: Reviewed & Not Pertinent, CAD - father Patient has suicidal ideation: Yes Patient has homicidal ideation: No Pulmonary Medical History: Reports: Hx Asthma Renal/ Medical History: Denies: Hx Peritoneal Dialysis Psychiatric Medical History: Reports: Hx Attention Deficit Hyperactivity Disorder, Hx Depression Past Surgical History: Reports: Hx Oral Surgery - Gum surgery - Immunizations Immunizations up to date: Yes Hx Diphtheria, Pertussis, Tetanus Vaccination: Yes Review of Systems - Review of Systems Notes: Constitutional: Negative for fever. HENT: Negative for sore throat. Eyes: Negative for visual changes. Cardiovascular: Negative for chest pain. Respiratory: Negative for shortness of breath. Gastrointestinal: Negative for abdominal pain, vomiting or diarrhea. Genitourinary: Negative for dysuria. Musculoskeletal: Negative for back pain. Skin: Negative for rash. Neurological: Negative for headaches, weakness or numbness. 10 point ROS negative except as marked above and in HPI. Physical Exam - Vital signs Vitals: Temp Pulse Resp BP Pulse Ox 98.3 F 100 18 137/91 H 97 04/28/17 21:24 12/19/17 21:24 04/28/17 21:24 04/28/17 21:24 04/28/17 21:24 Interpretation: Normal Notes: PHYSICAL EXAMINATION: GENERAL: Well-appearing, well-nourished and in no acute distress. HEAD: Atraumatic, normocephalic. EYES: Pupils equal round and reactive to light, extraocular movements intact, sclera anicteric, conjunctiva are normal. ENT: nares patent, oropharynx clear without exudates. Moist mucous membranes. NECK: Normal range of motion, supple without lymphadenopathy LUNGS: Breath sounds clear to auscultation bilaterally and equal. No wheezes rales or rhonchi. HEART: Regular rate and rhythm without murmurs ABDOMEN: Soft, nontender, normoactive bowel sounds. No guarding, no rebound. No masses appreciated. EXTREMITIES: Normal range of motion, no pitting or edema. No cyanosis. NEUROLOGICAL: No focal neurological deficits. Moves all extremities spontaneously and on command. PSYCH: Normal mood, normal affect. SKIN: Warm, Dry, normal turgor, no rashes or lesions noted. Course - Re-evaluation Re-evalutation: 04/28/17 23:29 Patient presents with 2 years of passive suicidal ideation although does report that she attempted to hang herself on Thanksgiving unsuccessfully. She reports that she finally decided today that she needed to get help for her ongoing depression and passive suicidal ideation. She denies any specific plans or intentions to complete suicide today but does note that she knows that she needs to get help. She does not meet involuntary commitment criteria at this time given the prolonged nature of her passive suicidal ideation and nothing is new or different today. I do suspect the patient has long-term untreated depression and likely requires long-term use of antidepressants as well as therapy. Patient has agreed to remain in the emergency department for psychiatric evaluation in the morning. Her medical screening exam and laboratories are otherwise unremarkable and she is cleared for psychiatric disposition. - Vital Signs Vital signs: Temp Pulse Resp BP Pulse Ox 98.3 F 100 18 137/91 H 97 04/28/17 21:24 04/28/17 21:24 04/28/17 21:24 04/28/17 21:24 04/28/17 21:24 - Laboratory Result Diagrams: 04/28/17 22:11 04/28/17 22:11 Laboratory results interpreted by me: 04/28/17 04/28/17 04/28/17 22:11 22:11 22:11 RDW 14.5 H Glucose 145 H Urine Protein 30 H Urine Blood MODERATE H Urine Urobilinogen 2.0 H Ur Leukocyte Esterase TRACE H Salicylates < 1.0 L Acetaminophen < 10 L - EKG Interpretation by Me Additional EKG results interpreted by me: 04/29/17 03:48 Normal sinus rhythm. Rate 82. No ST elevations or depressions. QTC is 439. Discharge - Discharge Clinical Impression: Passive suicidal ideations Depression Qualifiers: Depression Type: unspecified Qualified Code(s): F32.9 - Major depressive disorder, single episode, unspecified Condition: Fair Disposition: PSYCH HOSP/UNIT
--- NOTE | 2017-04-29 07:57 | EKG REPORT ---
SEVERITY:- NORMAL ECG - SINUS RHYTHM : Confirmed by: Richmond Grove MD 29-Apr-2017 07:56:34
--- NOTE | 2017-04-29 09:30 | ER Document Report ---
Doctor's Note Notes: 04/29/17 09:30 I have evaluated this patient this am and has no c/o at this time. Feels all of their needs are being met and physical exam is normal. Awaiting dispositon per mental health. 04/29/17 13:54 Mental health evaluated patient and is recommending discharge with follow-up at [facility]. Patient denies any active suicidality or homicidality at this time. Given very strict return precautions and she understands.
--- NOTE | 2017-04-29 13:23 | PSYCHOLOGICAL NOTE ---
Psych Note - Psych Note Psych Note: Patient is a 26-year-old female with a past medical history of depression and ADHD who presents with 2 years of passive suicidal ideation as well as progressively worsening depression. She reports that she came to the emergency department today because she finally became ready to receive help as she states that she can no longer continue to function in this manner. She reports multiple life stressors as worsening her symptoms including full-time work, full -time school, and conflicts with her father. She is not currently taking any medications and states she has never been on antidepressants. She disclosed that she is feeling a "little bit better." She states that she tends to have depressive "episodes" when her father and her "clash." Patient states that she was bullied all through school from kindergarten to graduation of high school. She states that she has been feeling passive suicidal ideation for a few months now. Patient remembers seeing this clinician last time she was here. She states she did not follow through with seeing outpatient mental health because she did not have insurance. Patient is alert and orientated to person, place, time and circumstance. Mood is euthymic with congruent affect evidenced by smiling and openly engaging with clinician. Patient endorses passive suicidal ideation no plans means or intent. Patient denies homicidal ideation. Patient denies auditory and visual hallucinations. Delusions are absent and behaviors congruent with intact reality based presentation i.e. organized, linear, rational thinking. Eye contact was well-maintained. Conversational speech was within normal rate, tone and prosody. Intellectual abilities appear to be within the average range. Attention and concentration were good. Insight, judgment, impulse control is good. 311 (F32.9) unspecified depressive disorder V 62.9 (Z65.9) unspecified problem related to unspecified psychosocial circumstance Impression\\plan: Patient is considered psychiatrically clear. Patient does not meet IVC criteria per [place] GS 122C. Patient disclosed chronic passive suicidal ideation. Patient does not have established outpatient provider for mental health and did not follow up with resources provided during her last [facility] ED visit. Patient has demonstrated pattern of seeking assistance with her chronic passive suicidal ideation after having an argument with her father. It is also noted the patient disclosed she had never been on medications; however, it is noted during her November [facility] ED visit disclosed that she was on Lexapro. Patient is recommended for outpatient services through [facility]. Dr. Morales was consulted and the care and management of this patient; attending physician is in agreement with recommendations and disposition.
[2017-04-29 14:12] VITALS: BP 130/99
== END 2017-04-29 14:20 | disposition home or self-care (01) ==
LOC: ER 21:20
DX: F32.9 Major depressive disorder, single episode, unspecified (principal); R45.851 Suicidal ideations; J45.909 Unspecified asthma, uncomplicated; Z91.5 Personal history of self-harm
CPT/HCPCS: 36415; 80053; 80307; 81001; 84703; 85025; 93005; 93010; 99285

== ENCOUNTER 2017-09-10 12:25 | Emergency (ER) | payer SELFPAY ==
[2017-09-10 12:35] VITALS: BP 131/80
[2017-09-10] MEDS ORDERED: KETOROLAC TROMETHAMINE INJ/PF 30 MG/1 ML SDV IM ONE (12:44)
[2017-09-10] MEDS ORDERED: DEXAMETHASONE SOD PHOS INJ 10 MG/1 ML VIAL IM ONE (12:44)
--- NOTE | 2017-09-10 12:46 | ER Document Report ---
HPI - HPI Pain Level: 4 Notes: Patient is a 27-year-old female with no significant past medical history who presents to the ED complaining of right lower back pain status post injury yesterday. Patient states that she was lifting a heavy bucket of water to fill her 10 gallons fish tank when she twisted and felt a pain in her lower back. Patient states that the pain does not radiate. Pt states that it feels like a spasm as well. Twisting and truncal movements make the pain worse. OTC meds have not been helping. She has not had any injections or procedures to her lower back. She denies any previous history of spinal abscess. Patient states that she is still ambulatory without any difficulties. She is eating and drinking without difficulties. She is urinating normally and having normal bowel movements. Denies any drug allergies. Denies any smoking or IV drug use. Denies any headache, fever, neck pain, URI, sore throat, chest pain, palpitations, syncope, cough, shortness of breath, wheeze, dyspnea, abdominal pain, nausea/vomiting/diarrhea, urinary retention, dysuria, hematuria, loss of control of bowel or bladder, numbness/tingling, saddle anesthesia, muscle paralysis/weakness, or rash. - ROS Systems Reviewed and Negative: Yes All other systems reviewed and negative - REPRODUCTIVE Reproductive: DENIES: : Past Medical History - Social History Smoking Status: Never Smoker Family History: Reviewed & Not Pertinent, CAD - father Pulmonary Medical History: Reports: Hx Asthma Renal/ Medical History: Denies: Hx Peritoneal Dialysis Psychiatric Medical History: Reports: Hx Attention Deficit Hyperactivity Disorder, Hx Depression Past Surgical History: Reports: Hx Oral Surgery - Gum surgery - Immunizations Immunizations up to date: Yes Hx Diphtheria, Pertussis, Tetanus Vaccination: Yes Vertical Provider Document - CONSTITUTIONAL Agree With Documented VS: Yes Notes: PHYSICAL EXAMINATION: GENERAL: Well-appearing, well-nourished and in no acute distress. LUNGS: Breath sounds clear to auscultation bilaterally and equal. No wheezes rales or rhonchi. HEART: Regular rate and rhythm without murmurs, rubs, gallops. ABDOMEN: Soft, nontender, nondistended abdomen. No guarding, no rebound. No masses appreciated. Normal bowel sounds present. No CVA tenderness bilaterally. No pulsatile mass Musculoskeletal: LE's b/l: FROM to passive/active. Strength 5+/5. No deficits noted. No bony tenderness of extremities. Back: FROM to passive/active. Strength 5+/5. No vertebral point tenderness, stepoffs, or deformities. No other bony tenderness, erythema, swelling, or ecchymosis. SLR negative b/l. + mild tenderness to the L-paraspinal mm rt, correlates with pain described. Mild spasming. No SI jt tenderness. No foot drop Extremities: No cyanosis, clubbing, or edema b/l. Peripheral pulses 2+. Capillary refill less than 2 seconds. NEUROLOGICAL: Normal speech, normal gait. Normal sensory, motor exams. Reflexes 2+ b/l. PSYCH: Normal mood, normal affect. SKIN: Warm, Dry, normal turgor, no rashes or lesions noted. - INFECTION CONTROL TRAVEL OUTSIDE OF THE [place] IN LAST 30 DAYS: No Course - Re-evaluation Re-evalutation: 09/10/17 12:50 Patient is an afebrile, well-hydrated, 27-year-old female who presents to the ED with right lower back pain, suspect lower back strain. Vitals are acceptable. PE is otherwise unremarkable for any focal neurological deficits. No labs or imaging warranted at this time based on H&P. Patient's pain is reproducible as noted in exam. Patient has no red flag symptoms. Low suspicion for any meningitis, fracture, expanding/ruptured AAA, cauda equina syndrome, epidural mass lesion/abscess, herniated disc causing severe spinal stenosis, or other systemic infection at this time. Patient is aware that this condition can change from initial presentation and that she needs monitor symptoms closely for any acute changes. Toradol and Decadron given today. I will send her home with a prescription for baclofen. Patient has naproxen at home. Conservative measures otherwise for symptoms. Recheck with your PCM in 3 -5 days. Consider consult orthopedic/physical therapy. Return to the ED with any worsening/concerning symptoms otherwise as reviewed discharge. Patient is in agreement. - Vital Signs Vital signs: Temp Pulse Resp BP Pulse Ox 98.6 F 88 18 131/80 H 97 09/10/17 12:33 09/10/17 12:33 09/10/17 12:33 09/10/17 12:33 09/10/17 12:33 Discharge - Discharge Clinical Impression: Low back strain Qualifiers: Encounter type: initial encounter Qualified Code(s): S39.012A - Strain of muscle, fascia and tendon of lower back, initial encounter Condition: Stable Disposition: HOME, SELF-CARE Instructions: Low Back Pain ([facility]), Muscle Relaxers ([facility]), Muscle Strain ([facility]), Stretching Exercises for the Back ([facility]) Additional Instructions: Rest, Ice Tylenol/ibuprofen as needed Light stretches daily Strength exercises as able Moist heat and massage may help F/u with your PCP in 3-5 days for a recheck Consider consult(s) with Orthopedics/physical therapy for ongoing/worsening symptoms Return to the ED with any worsening symptoms and/or development of fever, headache, changes in behavior/mentation/vision/speech, chest pain, palpitations , syncope, shortness of breath, trouble breathing, abdominal pain, n/v/d, blood in stool/urine, loss of control of bowel/bladder, urinary retention, muscle weakness/paralysis, saddle anesthesia, numbness/tingling, or other worsening symptoms that are concerning to you. Prescriptions: Baclofen [Baclofen 10 mg Tablet] 5 - 10 mg PO BID PRN #10 tablet PRN Reason: Forms: Elevated Blood Pressure, Return to Work Referrals: [facility] [Provider Group] - Follow up as needed
== END 2017-09-10 13:00 | disposition home or self-care (01) ==
LOC: ER 12:25
DX: S39.012A Strain of muscle, fascia and tendon of lower back, initial encounter (principal); X50.0XXA Overexertion from strenuous movement or load, initial encounter
CPT/HCPCS: 99283; 96372; J1885; J1100

== ENCOUNTER 2017-10-17 16:18 | Emergency (ER) | payer SELFPAY ==
[2017-10-17 16:24] VITALS: BP 135/83
--- NOTE | 2017-10-17 16:41 | ER Document Report ---
HPI - HPI Patient complains to provider of: sore throat and cough Onset: Other - few days Pain Level: 3 Context: 27 yo female c/o sore throat and cough for a few days. No fever, chest pain or sob. Associated Symptoms: None Exacerbated by: Denies Relieved by: Denies - ROS ROS below otherwise negative: Yes Systems Reviewed and Negative: Yes All other systems reviewed and negative - REPRODUCTIVE Reproductive: DENIES: : Past Medical History - General Information source: Patient - Social History Smoking Status: Unknown if Ever Smoked Frequency of alcohol use: None Drug Abuse: None Lives with: Family Family History: Reviewed & Not Pertinent, CAD - father Pulmonary Medical History: Reports: Hx Asthma Renal/ Medical History: Denies: Hx Peritoneal Dialysis Psychiatric Medical History: Reports: Hx Attention Deficit Hyperactivity Disorder, Hx Depression Past Surgical History: Reports: Hx Oral Surgery - Gum surgery - Immunizations Immunizations up to date: Yes Hx Diphtheria, Pertussis, Tetanus Vaccination: Yes Vertical Provider Document - CONSTITUTIONAL Agree With Documented VS: Yes Exam Limitations: No Limitations General Appearance: No Apparent Distress - INFECTION CONTROL TRAVEL OUTSIDE OF THE [place] IN LAST 30 DAYS: No - HEENT HEENT: Normocephalic, Pharyngeal Erythema. negative: Conjuctival Injection, Tympanic Membrane Red - NECK Neck: Supple. negative: Lymphadenopathy-Left, Lymphadenopathy-Right - RESPIRATORY Respiratory: Breath Sounds Normal, No Respiratory Distress - CARDIOVASCULAR Cardiovascular: Regular Rate, Regular Rhythm - BACK Back: CVA Tenderness-Right - NEURO Level of Consciousness: Awake - DERM Integumentary: No Rash Course - Re-evaluation Re-evalutation: 10/17/17 rapid strept negative - Vital Signs Vital signs: Temp Pulse Resp BP Pulse Ox 99.3 F 16 135/83 H 10/17/17 16:23 10/17/17 16:23 10/17/17 16:23 Discharge - Discharge Clinical Impression: Sore throat Upper respiratory infection Qualifiers: URI type: unspecified viral URI Qualified Code(s): J06.9 - Acute upper respiratory infection, unspecified Condition: Good Disposition: HOME, SELF-CARE Instructions: Acetaminophen, Ibuprofen (General) ([facility]), Sore Throat ([facility]), Upper Respiratory Illness ([facility]) Additional Instructions: Rest Drink plenty of fluids motrin tylenol Return to the emergency room if worsening symptoms Throat culture is pending Forms: Return to Work
== END 2017-10-17 17:27 | disposition home or self-care (01) ==
LOC: ER 16:18
DX: J02.9 Acute pharyngitis, unspecified (principal); J06.9 Acute upper respiratory infection, unspecified; R05 Cough; J45.909 Unspecified asthma, uncomplicated
CPT/HCPCS: 87070; 99282

== ENCOUNTER 2018-06-27 08:49 | Emergency (ER) | payer SELFPAY ==
[2018-06-27 09:04] VITALS: BP 132/90
--- NOTE | 2018-06-27 13:48 | ER Document Report ---
Entered by YO KIMBALL SCRIBE 06/27/18 0944 Acting as scribe for:SHONDA HAINES DO ED Breast Problem - General Chief Complaint: Breast Problem Stated Complaint: LUMP ON BREAST Time Seen by Provider: 06/27/18 09:34 Primary Care Provider: CHRISTIANNE RODRIGUEZ MD [ACTIVE STAFF] - Follow up as needed KIMBERLY HASSAN MD [ACTIVE STAFF] - Follow up as needed NENO BUNDY MD [ACTIVE STAFF] - Follow up as needed Mode of Arrival: Ambulatory Information source: Patient Notes: Patient is a 28 year old female presenting to the emergency department complaining of skin changes to her breasts. Patient states approximately a year ago, she formed a "lump" on her right breast. She states this "lump" has been present for the last year and she would intermittently develop other lumps on her left breast as well. She also notes recurrent drainage and erythema around the "lumps" as well. TRAVEL OUTSIDE OF THE [place] IN LAST 30 DAYS: No - Related Data Allergies/Adverse Reactions: No Known Allergies Allergy (Verified 06/27/18 09:34) Past Medical History - General Information source: Patient - Social History Smoking Status: Never Smoker Cigarette use (# per day): No Chew tobacco use (# tins/day): No Smoking Education Provided: No Frequency of alcohol use: None Family History: Reviewed & Not Pertinent, CAD - father Pulmonary Medical History: Reports: Hx Asthma Psychiatric Medical History: Reports: Hx Attention Deficit Hyperactivity Disorder, Hx Depression Past Surgical History: Reports: Hx Oral Surgery - Gum surgery - Immunizations Immunizations up to date: Yes Hx Diphtheria, Pertussis, Tetanus Vaccination: Yes Review of Systems - Review of Systems Constitutional: No symptoms reported EENT: No symptoms reported Cardiovascular: No symptoms reported Respiratory: No symptoms reported Gastrointestinal: No symptoms reported Genitourinary: No symptoms reported Female Genitourinary: No symptoms reported Musculoskeletal: No symptoms reported Skin: See HPI Hematologic/Lymphatic: No symptoms reported Neurological/Psychological: No symptoms reported -: Yes All other systems reviewed and negative Physical Exam - Vital signs Vitals: Temp Pulse Resp BP Pulse Ox 98.5 F 80 16 132/90 H 100 06/27/18 09:02 06/27/18 09:02 06/27/18 09:02 06/27/18 09:02 06/27/18 09:02 - Notes Notes: GENERAL: Alert, interacts well. No acute distress. HEAD: Normocephalic, atraumatic. EYES: Pupils equal, round, and reactive to light. Extraocular movements intact. ENT: Oral mucosa moist, tongue midline. NECK: Full range of motion. Supple. Trachea midline. LUNGS: No respiratory distress. EXTREMITIES: Moves all 4 extremities spontaneously. NEUROLOGICAL: Alert and oriented x3. Normal speech. PSYCH: Normal affect, normal mood. SKIN: Warm, dry. There is an ulcerated area of skin with surrounding erythema on the right breast at the 2 o'clock position, approximately 1 cm of ulceration, approximately 3 cm of erythema. There is a second area of erythema on the right breast around the 6 o'clock position, no fluctuance. There is one area of erythema on the left breast, pustular in nature, approximately 2 mm. Course - Re-evaluation Re-evalutation: 06/27/18 09:41 Uncertain whether or not these changes represent breast cancer or superficial skin infection such as a mild folliculitis. Recommend patient that we try a course of oral antibiotics in the form of Keflex as well as moisturizing lotions, recommend that she stop scratching at it and trying to unroofed them. Also recommend that she follow-up with either oncology, surgery or [employer] to arrange a mammogram as an outpatient. Apologized for the fact that we do not perform mammograms in the emergency department. Discharged to home. - Vital Signs Vital signs: Temp Pulse Resp BP Pulse Ox 98.5 F 80 16 132/90 H 100 06/27/18 09:02 06/27/18 09:02 06/27/18 09:02 06/27/18 09:02 06/27/18 09:02 Discharge - Discharge Clinical Impression: Skin rash Breast abrasion Qualifiers: Encounter type: initial encounter Laterality: right Qualified Code(s): S20.111A - Abrasion of breast, right breast, initial encounter Condition: Stable Disposition: HOME, SELF-CARE Additional Instructions: Today I am not certain what is the exact cause of the skin changes on your breast. It is possible that they are being caused by a bacterial infection. I would like you to take the Keflex 2 tablets twice a day for the next 7 days, apply a non-scented moisturizing lotion to your breasts once a day, avoid harsh soaps and do not attempt to drain anything that may appear on your breasts. During this time please also call 1 of the 3 resources I have provided to you on your discharge instructions to try and arrange a mammogram as an outpatient. Skin changes on your breasts that have been present for a year are concerning for possible cancer. Prescriptions: Cephalexin Monohydrate [Keflex 500 mg Capsule] 1,000 mg PO BID #28 capsule Referrals: NENO BUNDY MD [ACTIVE STAFF] - Follow up as needed KIMBERLY HASSAN MD [ACTIVE STAFF] - Follow up as needed CHRISTIANNE RODRIGUEZ MD [ACTIVE STAFF] - Follow up as needed Scribe Attestation: 06/27/18 13:48 I personally performed the services described in the documentation, reviewed and edited the documentation which was dictated to the scribe in my presence, and it accurately records my words and actions. I personally performed the services described in the documentation, reviewed and edited the documentation which was dictated to the scribe in my presence, and it accurately records my words and actions.
== END 2018-06-27 09:58 | disposition home or self-care (01) ==
LOC: ER 08:49
DX: S20.111A Abrasion of breast, right breast, initial encounter (principal); R21 Rash and other nonspecific skin eruption; X58.XXXA Exposure to other specified factors, initial encounter
CPT/HCPCS: 99283

== ENCOUNTER 2019-03-07 11:13 | Emergency (ER) | payer SELFPAY ==
--- NOTE | 2019-03-07 12:01 | ER Document Report ---
ED Medical Screen (RME) - General Chief Complaint: Breast Lump Stated Complaint: BREAST LUMPS, CERVIX PAIN Time Seen by Provider: 03/07/19 11:54 Notes: Patient is a 28-year-old female who presents emergency department with a chief complaint of right breast pain and cervix pain. Her symptoms started about a few weeks ago. Patient states that her right breast has had lumps in it before and she was placed on antibiotics back in June. Patient states that it never went away. Patient states that she feels it is spreading. Patient also states that she has had some spotting in between menstrual cycles. Patient states that she is sexually active. Exam: Breast exam deferred due to patient enclosed. Formal exam will be done by provider and patient is in an exam room. I have greeted and performed a rapid initial assessment of this patient. A comprehensive ED assessment and evaluation of the patient, analysis of test results and completion of medical decision making process will be conducted by an additional ED providers. TRAVEL OUTSIDE OF THE [place] IN LAST 30 DAYS: No - Related Data Allergies/Adverse Reactions: No Known Allergies Allergy (Verified 06/27/18 09:34) Past Medical History Pulmonary Medical History: Reports: Hx Asthma Renal/ Medical History: Denies: Hx Peritoneal Dialysis Psychiatric Medical History: Reports: Hx Attention Deficit Hyperactivity Disorder, Hx Depression Past Surgical History: Reports: Hx Oral Surgery - Gum surgery - Immunizations Immunizations up to date: Yes Hx Diphtheria, Pertussis, Tetanus Vaccination: Yes Physical Exam - Vital signs Vitals: Temp Pulse Resp BP Pulse Ox 98.0 F 85 18 135/76 H 97 03/07/19 11:20 03/07/19 11:20 03/07/19 11:20 03/07/19 11:20 03/07/19 11:20 Course - Vital Signs Vital signs: Temp Pulse Resp BP Pulse Ox 98.0 F 85 18 135/76 H 97 03/07/19 11:20 03/07/19 11:20 03/07/19 11:20 03/07/19 11:20 03/07/19 11:20
[2019-03-07 12:38] LABS: ABSOLUTE LYMPHOCYTES (AUTO) 1.6 10^3/uL (0.5-4.7); ABSOLUTE MONOCYTES (AUTO) 0.5 10^3/uL (0.1-1.4); ABSOLUTE NEUT (AUTO) 2.8 10^3/uL (1.7-8.2); BASOPHILS % (AUTO) 0.8 % (0-2); HEMATOCRIT 40.9 % (36.0-47.0); HEMOGLOBIN 13.3 g/dL (12.0-15.5); LYMPHOCYTES % (AUTO) 31.9 % (13-45); MEAN CORPUSCULAR HEMOGLOBIN 28.8 pg (27.0-33.4); MEAN CORPUSCULAR HGB CONC 32.6 g/dL (32.0-36.0); MEAN CORPUSCULAR VOLUME 88 fl (80-97); PLATELET COUNT 213 10^3/uL (150-450); RED BLOOD COUNT 4.63 10^6/uL (3.72-5.28); RED CELL DISTRIBUTION WIDTH 14.3 % (11.5-14.0); SEGMENTED NEUTROPHILS % (AUTO) 56.3 % (42-78); TOTAL CELLS COUNTED % (AUTO) 100 %
[2019-03-07 12:48] LABS: APPEARANCE,URINE CLOUDY; BILIRUBIN,URINE NEGATIVE (NEGATIVE); COLOR,URINE YELLOW; GLUCOSE, URINE 50 mg/dL (NEGATIVE); KETONES,URINE TRACE mg/dL (NEGATIVE); PROTEIN,URINE NEGATIVE (NEGATIVE); URINE SPECIFIC GRAVITY 1.033; UROBILINOGEN,URINE NEGATIVE mg/dL (<2.0)
[2019-03-07 13:13] LABS: ALBUMIN 4.4 g/dL (3.5-5.0); ALKALINE PHOSPHATASE 85 U/L (38-126); ANION GAP 14 (5-19); ASPARTATE AMINO TRANSFERASE 18 U/L (14-36); BILIRUBIN,DIRECT 0.3 mg/dL (0.0-0.4); BILIRUBIN,TOTAL 0.4 mg/dL (0.2-1.3); BLOOD UREA NITROGEN 18 mg/dL (7-20); CALCIUM 9.8 mg/dL (8.4-10.2); CARBON DIOXIDE 23 mmol/L (22-30); CHLORIDE 107 mmol/L (98-107); GLUCOSE 132 mg/dL (75-110); POTASSIUM 4.5 mmol/L (3.6-5.0)
--- NOTE | 2019-03-07 15:15 | RADIOLOGY REPORT (SQ) ---
EXAM DESCRIPTION: U/S NON-OB PELVIS TV W/O DOP COMPLETED DATE/TIME: 03/07/2019 2:37 pm REASON FOR STUDY: cervix pain COMPARISON: None. TECHNIQUE: Transvaginal and transabdominal dynamic and static grayscale images of the pelvis were ac quired and recorded on PACS. Additional selected color Doppler and spectral images recorded. LIMITATIONS: None. FINDINGS: UTERUS: The uterus measures 8.2 x 4.6 x 3.6 cm. The myometrium is heterogeneous without a discrete mass. ENDOMETRIAL STRIPE: The endometrium measures 12 mm in thickness. CERVIX: The cervix measures 1.8 cm in length. There are no nabothian cysts in the cervix RIGHT OVARY AND DOPPLER: Unable to visualize the right ovary. There is no adnexal mass or free fluid . LEFT OVARY AND DOPPLER: Unable to visualize the left ovary. There is no adnexal mass or free fluid. FREE FLUID: None. OTHER: No other finding. IMPRESSION: 1. Heterogeneous appearance of the myometrium without a discrete mass. Findings are no nspecific and could represent for ill-defined fibroids or adenomyosis. 2. Normal endometrial thickness. 3. Nonvisualization of the ovaries. No adnexal mass or free fluid. TECHNICAL DOCUMENTATION: JOB ID: [id number] [employer]- All Rights Reserved Rev Reading location - IP/workstation name: [email or web address]
--- NOTE | 2019-03-07 16:41 | RADIOLOGY REPORT (SQ) ---
EXAM DESCRIPTION: U/S BREAST UNILATERAL LIMITED COMPLETED DATE/TIME: 03/07/2019 2:33 pm REASON FOR STUDY: breast lumps COMPARISON: None TECHNIQUE: Static and Realtime grayscale interrogation of focal area(s) of concern in the right lara st(s) acquired. Selected color doppler/spectral images saved to PACS. LIMITATIONS: None. FINDINGS: Per the assistant baseball coach there are 3 areas of discoloration in the right breast. At 2 of these sites (at the 1 o'clock and 4 o'clock positions) there are focal hypoechoic areas within the subcuta neous tissues (superficial to the breast tissue) - the area at the 1 o'clock positions measures 1.3 x 1.7 x 0.8 cm and the area at the 4 o'clock position measures 0.9 x 1 x 0.3 cm. There is no drainabl e fluid collection or abnormal vascularity on Doppler. IMPRESSION: Small focal hypoechoic areas within the subcutaneous tissues of the right breast at the 1 and 4 o'clock positions that correspond to 2 of the 3 areas of discoloration noted on the right mila ast. There is no drainable fluid collection or abnormal vascularity on Doppler. BIRAD: N/A. RECOMMENDATION: RECOMMENDED FOLLOW-UP: Follow-up as clinically indicated. COMMENT: The [employer] (A[employer]) has developed recommendations for screening MRI of the breasts in certain patient populations, to be used in conjunction with mammography. Breast MRI s urveillance may be appropriate for women with more than 20% lifetime risk of developing breast cancer as determined by genetic testing, significant family history of the disease, or history of mantle r adiation for Hodgkins Disease. ACR Practice Guidelines 2008. TECHNICAL DOCUMENTATION: FINDING NUMBER: (1) ASSESSMENT: (1) JOB ID: [id number] [employer]- All Rights Reserved Reading location - IP/workstation name: [email or web address]
[2019-03-07 18:25] LABS: BACTERIA (WET MOUNT) 4+ BACTERIA SEEN; EPITHELIALS (WET MOUNT) 3+ EPITHELIALS SEEN; T.VAGINALIS (WET MOUNT) NO TRICHOMONAS SEEN; WBCS (WET MOUNT) 2+ WBCS SEEN; YEAST (WET MOUNT) NO YEAST SEEN
[2019-03-07] MEDS ORDERED: METRONIDAZOLE 500 MG TABLET PO ONE (18:27)
[2019-03-07] MEDS ORDERED: LIDOCAINE 1% INJ-PF (10 MG/ML) 30 ML SDV NEB ONE (18:28)
[2019-03-07] MEDS ORDERED: CEFTRIAXONE INJ 250 MG VIAL IM ONE (18:28)
[2019-03-07] MEDS ORDERED: DOXYCYCLINE HYCLATE 100 MG TABLET PO ONE (18:28)
[2019-03-07] MEDS ORDERED: AZITHROMYCIN 250 MG TABLET PO ONE (18:28)
[2019-03-07 18:29] VITALS: BP 137/78
--- NOTE | 2019-03-07 18:36 | ER Document Report ---
ED General - General Chief Complaint: Breast Lump Stated Complaint: BREAST LUMPS, CERVIX PAIN Time Seen by Provider: 03/07/19 11:54 Notes: ANGELINA NOTE: Patient is a 28-year-old female who presents emergency department with a chief complaint of right breast pain and cervix pain. Her symptoms started about a few weeks ago. Patient states that her right breast has had lumps in it before and she was placed on antibiotics back in June. Patient states that it never went away. Patient states that she feels it is spreading. Patient also states that she has had some spotting in between menstrual cycles. Patient states that she is sexually active. MY HPI: Patient was seen at this facility for "lumps" in her right breast previously. She was instructed to follow-up for a mammogram. Patient voices she never followed up for the mammogram. States she has had these bumps "forever." Patient's denying any change, increase, decrease in the lumps in her right breast. States since she is in the emergency department she "mine as well had them checked again." Patient voices her main complaint is pelvic pain. Voices she does have vaginal discharge and intermittent dysuria. Patient's denying any nausea, vomiting, fevers. Voices she is sexually active. Patient is unsure of her last menstrual cycle. TRAVEL OUTSIDE OF THE [place] IN LAST 30 DAYS: No - Related Data Allergies/Adverse Reactions: No Known Allergies Allergy (Verified 06/27/18 09:34) Past Medical History - General Information source: Patient - Social History Smoking Status: Never Smoker Family History: Reviewed & Not Pertinent, CAD - father Patient has suicidal ideation: No Patient has homicidal ideation: No Pulmonary Medical History: Reports: Hx Asthma Renal/ Medical History: Denies: Hx Peritoneal Dialysis Psychiatric Medical History: Reports: Hx Attention Deficit Hyperactivity Disorder, Hx Depression Past Surgical History: Reports: Hx Oral Surgery - Gum surgery - Immunizations Immunizations up to date: Yes Hx Diphtheria, Pertussis, Tetanus Vaccination: Yes Review of Systems - Review of Systems Constitutional: denies: Fever EENT: No symptoms reported Cardiovascular: No symptoms reported Respiratory: No symptoms reported Gastrointestinal: See HPI Genitourinary: See HPI Female Genitourinary: See HPI Musculoskeletal: No symptoms reported Skin: See HPI Hematologic/Lymphatic: No symptoms reported Neurological/Psychological: No symptoms reported Physical Exam - Vital signs Vitals: Temp Pulse Resp BP Pulse Ox 98.0 F 85 18 135/76 H 97 03/07/19 11:20 03/07/19 11:20 03/07/19 11:20 03/07/19 11:20 03/07/19 11:20 - Notes Notes: GENERAL: Alert, interacts well. No acute distress. HEAD: Normocephalic, atraumatic. EYES: Pupils equal, round, and reactive to light. Extraocular movements intact. ENT: Oral mucosa moist, tongue midline. NECK: Full range of motion. Supple. Trachea midline. LUNGS: Clear to auscultation bilaterally, no wheezes, rales, or rhonchi. No respiratory distress. HEART: Regular rate and rhythm. No murmur Breast tissue: Nca Certified Concierge Bea STOCK, patient does have rather large breasts bilaterally. Right breast, no obvious masses felt. She does have slight discoloration at the 1:00 region. Patient voices she did have discharge from that site "months ago" but is denying any current discharge. Is not erythematous, not warm, nonfluctuant, nonindurated. Is approximately the size of a dime. No discharge noted from the nipple. Left breast no abnormalities felt or seen. ABDOMEN: Soft, suprapubic abdominal pain noted, no pelvic pain noted, otherwise abdominal exam benign. Non-distended. Bowel sounds present in all 4 quadrants. EXTREMITIES: Moves all 4 extremities spontaneously. No edema, normal radial and dorsalis pedis pulses bilaterally. No cyanosis. BACK: no cervical, thoracic, lumbar midline tenderness. No saddle anesthesia, normal distal neurovascular exam. No cervical motion tenderness noted bilaterally. NEUROLOGICAL: Alert and oriented x3. Normal speech. cranial nerves II through XII grossly intact PSYCH: Normal affect, normal mood. SKIN: Warm, dry, normal turgor. Pelvic: Nca Certified Concierge Bea STOCK malodorous white and yellow discharge noted in cul-de-sac, positive cervical motion tenderness noted, negative adnexal tenderness noted bilaterally. Course - Re-evaluation Re-evalutation: 03/07/19 18:32 Laboratory 03/07/19 03/07/19 03/07/19 12:12 12:12 12:12 WBC 5.0 RBC 4.63 Hgb 13.3 Hct 40.9 MCV 88 MCH 28.8 MCHC 32.6 RDW 14.3 H Plt Count 213 Lymph % (Auto) 31.9 [place] % (Auto) 10.0 Eos % (Auto) 1.0 Baso % (Auto) 0.8 Absolute Neuts (auto) 2.8 Absolute Lymphs (auto) 1.6 Absolute Monos (auto) 0.5 Absolute Eos (auto) 0.0 Absolute Basos (auto) 0.0 Seg Neutrophils % 56.3 Sodium 143.5 Potassium 4.5 Chloride 107 Carbon Dioxide 23 Anion Gap 14 BUN 18 Creatinine 0.70 Est GFR ( Amer) > 60 Est GFR (MDRD) Non-Af > 60 Glucose 132 H Calcium 9.8 Total Bilirubin 0.4 Direct Bilirubin 0.3 Neonat Total Bilirubin Not Reportable Neonat Direct Bilirubin Not Reportable Neonat Indirect Bili Not Reportable AST 18 ALT 14 Alkaline Phosphatase 85 Total Protein 8.0 Albumin 4.4 Serum HCG, Qual Urine Color YELLOW Urine Appearance CLOUDY Urine pH 5.0 Ur Specific [place] 1.033 Urine Protein NEGATIVE Urine Glucose (UA) 50 H Urine Ketones TRACE H Urine Blood NEGATIVE Urine Nitrite (Reflex) NEGATIVE Urine Bilirubin NEGATIVE Urine Urobilinogen NEGATIVE Leukocyte Esterase Rfl SMALL H Urine RBC (Auto) 6 Urine Bacteria (Auto) TRACE Urine WBC (Reflex) 6 Squamous Epi Cells Auto 14 Urine Mucus (Auto) MANY Urine Ascorbic Acid 40 H Epi Cells (Wet Prep) Bacteria (Wet Prep) Trichomonas (Wet Prep) Vaginal WBC Vaginal Yeast 03/07/19 03/07/19 12:12 18:08 WBC RBC Hgb Hct MCV MCH MCHC RDW Plt Count Lymph % (Auto) [place] % (Auto) Eos % (Auto) Baso % (Auto) Absolute Neuts (auto) Absolute Lymphs (auto) Absolute Monos (auto) Absolute Eos (auto) Absolute Basos (auto) Seg Neutrophils % Sodium Potassium Chloride Carbon Dioxide Anion Gap BUN Creatinine Est GFR ( Amer) Est GFR (MDRD) Non-Af Glucose Calcium Total Bilirubin Direct Bilirubin Neonat Total Bilirubin Neonat Direct Bilirubin Neonat Indirect Bili AST ALT Alkaline Phosphatase Total Protein Albumin Serum HCG, Qual NEGATIVE Urine Color Urine Appearance Urine pH Ur Specific [place] Urine Protein Urine Glucose (UA) Urine Ketones Urine Blood Urine Nitrite (Reflex) Urine Bilirubin Urine Urobilinogen Leukocyte Esterase Rfl Urine RBC (Auto) Urine Bacteria (Auto) Urine WBC (Reflex) Squamous Epi Cells Auto Urine Mucus (Auto) Urine Ascorbic Acid Epi Cells (Wet Prep) 3+ EPITHELIALS SEEN Bacteria (Wet Prep) 4+ BACTERIA SEEN Trichomonas (Wet Prep) NO TRICHOMONAS SEEN Vaginal WBC 2+ WBCS SEEN Vaginal Yeast NO YEAST SEEN Breast Ultrasound 03/07/19 11:59 IMPRESSION: Small focal hypoechoic areas within the subcutaneous tissues of the right breast at the 1 and 4 o'clock positions that correspond to 2 of the 3 areas of discoloration noted on the right breast. There is no drainable fluid collection or abnormal vascularity on Doppler. Transvaginal US 03/07/19 11:59 IMPRESSION: 1. Heterogeneous appearance of the myometrium without a discrete mass. Findings are nonspecific and could represent for ill-defined fibroids or adenomyosis. 2. Normal endometrial thickness. 3. Nonvisualization of the ovaries. No adnexal mass or free fluid. Based on patient's obvious malodorous vaginal discharge and cervical motion tenderness I will treat for PID. I have also discussed with her pelvic ultrasound results of possible fibroid. Of also discussed with her breast ultrasound results. I have it made it abundantly clear to the patient that this is not a mammogram. I discussed she needs to follow-up for a mammogram to rule out breast cancer. Patient voices understanding. Her ultrasound shows no signs of fluid buildup or drainable masses at this time. Patient has been prophylactically treated for gonorrhea and chlamydia in the emergency department. Discussed [facility] with [facility], [facility], [facility] as patient voices she is uninsured. - Vital Signs Vital signs: Temp Pulse Resp BP Pulse Ox 98.0 F 85 18 135/76 H 97 03/07/19 11:20 03/07/19 11:20 03/07/19 11:20 03/07/19 11:20 03/07/19 11:20 - Laboratory Result Diagrams: 03/07/19 12:12 03/07/19 12:12 Laboratory results interpreted by me: 03/07/19 03/07/19 03/07/19 12:12 12:12 12:12 RDW 14.3 H Glucose 132 H Urine Glucose (UA) 50 H Urine Ketones TRACE H Leukocyte Esterase Rfl SMALL H Urine Ascorbic Acid 40 H Discharge - Discharge Clinical Impression: Pelvic inflammatory disease, Fibroid, Breast lump or mass Condition: Stable Disposition: HOME, SELF-CARE Instructions: Pelvic Inflammatory Disease ([facility]), Breast Lumps ([facility]) Additional Instructions: As we discussed you have been seen and treated in the emergency department for pelvic inflammatory disease. Please make sure you are taking antibiotics as prescribed. Please make sure you refrain from sexual activity and alcohol use while taking antibiotics. Your breast ultrasound does reveal abnormalities we are unable to perform a mammogram in the emergency department. We were unable to rule out breast cancer at today's visit. It is very important that you follow-up at [facility], [facility], [facility], [facility] for continued evaluation of your complaint of right breast lumps. Please return to the emergency room should you have any concerns. Prescriptions: Doxycycline Hyclate 100 mg PO BID 14 Days capsule Metronidazole [Flagyl 500 mg Tablet] 500 mg PO BID 14 Days tablet Ondansetron [Zofran Odt 4 mg Tablet] 1 - 2 tab PO Q6 PRN #10 tab.rapdis PRN Reason: For Nausea/Vomiting Forms: Return to Work Referrals: KATIE BEACH DO [ACTIVE STAFF] - [facility] as [facility] [NO [facility]AL MD] - Follow up as needed [facility] [Provider Group] - Follow up as needed [facility] [Provider Group] - Follow up as needed [facility] [Provider Group] - Follow up as needed [facility] [Provider Group] - Follow up as needed
[2019-03-07 19:52] LABS: CHLAM PCR DETECTED (NOT DETECT)
== END 2019-03-07 19:00 | disposition home or self-care (01) ==
LOC: ER 11:13
DX: N73.9 Female pelvic inflammatory disease, unspecified (principal); N63.0 Unspecified lump in unspecified breast; N64.59 Other signs and symptoms in breast; D21.9 Benign neoplasm of connective and other soft tissue, unspecified; N64.4 Mastodynia; R10.2 Pelvic and perineal pain; J45.909 Unspecified asthma, uncomplicated
CPT/HCPCS: 94640; 99284; 96372; 36415; 87086; 87210; 84703; 85025; 80053; 81001; 87491; 87591; 76642; 76830; J3490; J0696